=== PATIENT | female | born 1985 | race Caucasian/White ===

== ENCOUNTER 2016-10-05 12:54 | Emergency (ER) | payer MEDICAID, OTHER ==
[2016-10-05] MEDS ORDERED: HYDROmorphone* 1 MG/ML 1 ML SYR IV SLOW PU ONE (13:28)
[2016-10-05] MEDS ORDERED: Ondansetron INJ* 2 MG/ML VIAL IV ONE (13:30)
--- NOTE | 2016-10-05 14:01 | RAD ---
INDICATION: Bilateral upper quadrant abdominal pain, polycystic kidney disease and hypertension. COMPARISON: Comparison is made with a prior CT of the abdomen and pelvis from December 16, 2005. TECHNIQUE: A CT scan of the abdomen and pelvis was performed without intravenous or oral contrast. Contiguous axial sections were obtained from the lung bases through the symphysis pubis. Images were reconstructed in the coronal and sagittal planes. FINDINGS: There is mild dependent bilateral lower lobe subsegmental atelectasis. No pleural effusion is present. The liver and spleen are normal in size. There is a small hypodense lesion in the posterior segment of the right hepatic lobe which is not seen on the prior exam measuring 0.7 cm in size likely representing a cyst although too small to characterize on this noncontrast study. No calcified gallstones are seen. The gallbladder is nondistended. The pancreas appears to be within normal limits. The right adrenal gland appears to be within normal limits. The left adrenal gland is not well-defined. The kidneys are markedly enlarged with numerous cysts. A few of these cysts appear hyperdense consistent with hemorrhagic cysts within both kidneys. There are also bilateral renal calcifications most consistent with calculi. No ureteral or bladder calculi are seen. The aorta is normal in caliber without significant calcific plaque. There are a couple mildly prominent para-aortic and pericaval retroperitoneal lymph nodes in the upper abdomen measuring up to 1.0 cm in transverse dimension. No other enlarged intraperitoneal lymph nodes are seen. The stomach, small and large bowel appear nondistended. The appendix is not visualized. There is no evidence for diverticulitis or colitis. The uterus is anteverted and normal in size. No free intraperitoneal air or fluid is seen. There are surgical clips present bilaterally within the pelvis. No significant focal osseous abnormality is seen. IMPRESSION: 1. MARKEDLY ENLARGED KIDNEYS WITH NUMEROUS CYSTS WITH SEVERAL HEMORRHAGIC CYSTS AND RENAL CALCULI CONSISTENT WITH ADULT TYPE POLYCYSTIC KIDNEY DISEASE. 2. THERE ARE COUPLE MILDLY PROMINENT RETROPERITONEAL LYMPH NODES IN THE UPPER ABDOMEN.
[2016-10-05 14:32] LABS: Hematocrit 38 % (35-47); Hemoglobin 12.4 g/dl (12.0-16.0); Mean Corpuscular HGB Conc 33 g/dl (31-36); Mean Corpuscular Hemoglobin 30 pg (27-31); Mean Corpuscular Volume 93 fL (80-97); Mean Platelet Volume 8 um3 (7.4-10.4); Red Blood Count 4.12 10^6/ul (4.0-5.4); Red Cell Distribution Width 15 % (10.5-15)
[2016-10-05] MEDS ORDERED: Labetalol IV* 5 MG/ML 20 ML VIAL IV PUSH ONE (14:33)
[2016-10-05 14:50] LABS: Troponin I 0.01 ng/mL (<0.04)
[2016-10-05 14:59] LABS: Albumin 4.3 g/dL (3.2-5.2); BUN/Creatinine Ratio 6.5 (8-20); C Reactive Protein 1.47 mg/L (< 5.00); Calcium 9.1 mg/dL (8.6-10.3); EGFR African American 11.1 (>60); EGFR Non-African American 8.6 (>60); Globulin 3.8 g/dL (2-4); Magnesium 2.4 mg/dL (1.9-2.7); Potassium 4.7 mmol/L (3.5-5.0); Total Bilirubin 0.5 mg/dL (0.2-1.0); Total Protein 8.1 g/dL (6.4-8.9)
--- NOTE | 2016-10-05 15:12 | RAD ---
INDICATION: Upper abdominal pain. COMPARISON: Correlation is made with a prior renal ultrasound from December 16, 2005. Correlation is also made with the CT of the abdomen and pelvis from October 05, 2016. TECHNIQUE: Multiple real-time images of the abdomen were obtained. FINDINGS: The liver is normal in size and echogenicity without significant focal abnormality. The gallbladder appeared normal. No gallstones, gallbladder wall thickening or pericholecystic fluid was present. No intra or extrahepatic ductal distention is present. The common bile duct measured 0.4 cm in diameter. The pancreas is partially obscured by overlying bowel gas. The kidneys are markedly enlarged with numerous cysts consistent with the patient's history of adult type polycystic kidney disease. The right kidney measured 25.3 x 12.6 x 12.1 cm and the left kidney measured 20.7 x 12.0 x 12.7 cm. The spleen is normal in size without focal abnormality. IMPRESSION: 1. MARKEDLY ENLARGED KIDNEYS WITH NUMEROUS CYSTS CONSISTENT WITH POLYCYSTIC KIDNEY DISEASE. 2. NORMAL EXAM OF THE GALLBLADDER.
[2016-10-05 15:41] LABS: Urine Bacteria 1+ (Absent); Urine Bilirubin Negative (Negative); Urine Glucose Negative (Negative); Urine Nitrite Negative (Negative)
[2016-10-05] MEDS ORDERED: NS 0.9% 1000 ML* 1,000 ML BOLUS SCH (17:00)
[2016-10-05 17:45] VITALS: BP 148/97
--- NOTE | 2016-10-06 04:39 | ED ---
Shayy Sawant Thomas, scribed for Amy Martino MD on 10/05/16 at 1317 . Abdominal Pain/Female - HPI Summary HPI Summary: The pt is a 31 y/o F accompanied by fileslie presenting to the ED c/o diffuse abd pain that began this AM around 8: 00. The pain is greater in the R side than the L. The pt rates the pain 10/10. The pain is intermittent and is described as stabbing. Pt additionally c/o vomiting (green in color, 5x this morning), chronic back pain (attributed to kidneys). Pt denies diarrhea, dysuria, and hematuria. PMHx: polycystic kidney disease, Stage 5 kidney failure (onset 1 year , used to see Dr. Olguin), HTN. PSHx: tubal ligation. SHx: smoking (1/2 PPD), no alcohol, no illict drugs. FHx: polycystic kidney disease. Her vomiting began this morning before her abd pain did. She ate pizza last night and ate crackers this AM, but was unable to keep them down. Her last BM was this AM and was normal. She takes metoprolol 12.5 mg daily, amlodipine 10mg daily, and Percocet 7.5/325 daily. She took Percocet today at approximately 8AM but not take metoprolol or amlodipine. She is not on dialysis and she does not have an AV Fistula. Her mother is on dialysis, as well as other family members. No family members have received a kidney transplant. She sees Dr. Raquel Suarez, training facilitator in [facility], for her polycystic kidney disease. She states that her chronic kidney pain normally shoots behind her back and radiates into her lower abdomen. However, her current abd pain is located in her diffuse abdomen and is R>L. LNMP 09/14/16. G=2, P=2, A=0. - History of Current Complaint Chief Complaint: EDAbdPain Stated Complaint: VOMITING,ABD PAIN Time Seen by Provider: 10/05/16 13:10 Hx Obtained From: Patient, Family/Manager Of Business Operations - fiance is with pt ?: No Onset/Duration: Sudden Onset, Lasting Hours - began today at 8AM, Still Present Timing: Constant Severity Initially: Severe Severity Currently: Severe Pain Intensity: 10 Pain Scale Used: 0-10 Numeric Location: Diffuse, Other - R>L Radiates: No Character: Other: - stabbing Aggravating Factor(s): Nothing Alleviating Factor(s): Nothing Associated Signs and Symptoms: Positive: Vomiting - 5x this AM, green in color. Negative: Diarrhea, Other: - NEG: dysuria, hematuria Allergies/Adverse Reactions: Allergies Allergy/AdvReac Type Severity Reaction Status Date / Time Metoclopramide [From Reglan] Allergy Hives Verified 10/05/16 12:59 Morphine Allergy Hives Verified 10/05/16 13:00 PMH/Surg Hx/FS Hx/Imm Hx Previously Healthy: No - Polycystic kidney disease Cardiovascular History: Reports: Hx Hypertension History: Reports: Hx Chronic Renal Failure - stage 5, Other Problems/ Disorders - Hx polycystic kidney disease - Surgical History Surgery Procedure, Year, and Place: tubal ligation Infectious Disease History: Denies: Traveled Outside the [place] in Last 30 Days - Family History Known Family History: Positive: Other - POS: polycystic kidney disease - Social History Lives: With Family - with two children Alcohol Use: None Substance Use Type: Reports: None Smoking Status (MU): Smoker, Current Status Unknown Review of Systems Constitutional: Negative Negative: Fever Eyes: Negative ENT: Negative Cardiovascular: Negative Respiratory: Negative Positive: Abdominal Pain - began this AM, stabbing, intermittent, diffuse but R> L , Vomiting - green, onset this AM before abd pain, 5x. Negative: Diarrhea Genitourinary: Negative Musculoskeletal: Negative Skin: Negative Neurological: Negative Psychological: Normal All Other Systems Reviewed And Are Negative: Yes Physical Exam Triage Information Reviewed: Yes Vital Signs On Initial Exam: Initial Vitals Temp Pulse Resp BP Pulse Ox 97.3 F 87 20 180/107 100 10/05/16 12:56 10/05/16 12:56 10/05/16 12:56 10/05/16 12:56 10/05/16 12:56 Vital Signs Reviewed: Yes Appearance: Positive: Well-Appearing, Well-Nourished, Pain Distress Skin: Positive: Warm, Skin Color Reflects Adequate Perfusion Head/Face: Positive: Normal Head/Face Inspection Eyes: Positive: Conjunctiva Clear ENT: Positive: Normal ENT inspection Neck: Positive: Supple Respiratory/Lung Sounds: Positive: Clear to Auscultation, Breath Sounds Present , Other - No respiratory distress Cardiovascular: Positive: RRR, Pulses are Symmetrical in both Upper and Lower Extremities, Other - Brisk cap refill. Negative: Rub Abdomen Description: Positive: Soft, CVA Tenderness (R), CVA Tenderness (L), Other: - Tender to RUQ and LUQ. No rebound. Enlarged kidneys revealed in palpation.. Negative: Nontender, Guarding, McBurney's Point Tenderness, Peritoneal Signs, Pulsatile Mass, Splenomegaly Bowel Sounds: Positive: Present Musculoskeletal: Positive: Strength/ROM Intact. Negative: Edema Left, Edema Right Neurological: Positive: Sensory/Motor Intact, Alert, Oriented to Person Place, Time, Speech Normal Psychiatric: Positive: Other - tearful with pain Diagnostics - Vital Signs Vital Signs Temp Pulse Resp BP Pulse Ox 10/05/16 12:56 97.3 F 87 20 180/107 100 - Laboratory Result Diagrams: 10/05/16 14:19 10/05/16 14:19 Lab Statement: Any lab studies that have been ordered have been reviewed, and results considered in the medical decision making process. - CT CT Abd/Pel CT Interpretation: Positive (See Comments) - 1. MARKEDLY ENLARGED KIDNEYS WITH NUMEROUS CYSTS WITH SEVERAL HEMORRHAGIC CYSTS AND RENAL CALCULI CONSISTENT WITH ADULT TYPE POLYCYSTIC KIDNEY DISEASE. 2. THERE ARE COUPLE MILDLY PROMINENT RETROPERITONEAL LYMPH NODES IN THE UPPER ABDOMEN. CT Interpretation Completed By: Radiologist - EKG 15:17 Cardiac Rate: NL - 66 BPM EKG Interpretation: Sinus rhythm. Normal AV, IV conduction time, and QTc. RSR' in V1, V2. EKG Comparison: Other - No prior EKGs - Additional Comments Diagnostic Additional Comments: US Abdomen. Interpreted by radiologist. Impression: 1. MARKEDLY ENLARGED KIDNEYS WITH NUMEROUS CYSTS CONSISTENT WITH POLYCYSTIC KIDNEY DISEASE. 2. NORMAL EXAM OF THE GALLBLADDER. Re-Evaluation - Re-Evaluation First Eval Re-Evaluation Time: 14:24 Change: Unchanged Comment: On re-evaluation, patient is informed of CT Abd/Pel results. She is still in pain. Her labs are not yet back at this point. She was informed to remain NPO. BP 178/199. will give labetalol Second Eval Re-Evaluation Time: 16:43 Change: Unchanged Comment: Blood pressure is 133/95. Her pulse is 71. She is thirsty. She is not nauseous and not in any pain. Abdominal Pain Fem Course/Dx - Course Course Of Treatment: At 16:39, I called the patient's training facilitator Dr. Maryann Suarez. I was directed to the training facilitator community relations rep and I gave [facility]'s phone number. I was told that I will recieve a return phone call from Dr. Killian Harrell in the near future. His number is [phone]. I recieved a phone call from him at 16:50 and we discussed patient care. Dr. Harrell agrees with discharge and close office follow up. . ASSESSMENT AND PLAN: The pt is a 31 y/o F accompanied by chelsie presenting to the ED c/o diffuse abd pain that began this AM around 8: 00. The pain is greater in the R side than the L. The pt rates the pain 10/10. The pain is intermittent and is described as stabbing. Pt additionally c/o vomiting (green in color, 5x this morning), chronic back pain (attributed to kidneys). Pt denies diarrhea, dysuria, and hematuria. PMHx: polycystic kidney disease, Stage 5 kidney failure (onset 1 year , used to see Dr. Olguin), HTN. PSHx: tubal ligation. SHx: smoking (1/2 PPD), no alcohol, no illict drugs. FHx: polycystic kidney disease. Her vomiting began this morning before her abd pain did. She ate pizza last night and ate crackers this AM, but was unable to keep them down. Her last BM was this AM and was normal. She takes metoprolol 12.5 mg daily, amlodipine 10mg daily, and Percocet 7.5/325 daily. She took Percocet today at approximately 8AM but not take metoprolol or amlodipine. She is not on dialysis and she does not have an AV Fistula. Her mother is on dialysis, as well as other family members. No family members have received a kidney transplant. She sees Dr. Raquel Suarez, training facilitator in [facility], for her polycystic kidney disease. She states that her chronic kidney pain normally shoots behind her back and radiates into her lower abdomen. However, her current abd pain is located in her diffuse abdomen and is R>L. [facility] 09/14/16. G=2, P=2, A=0. CT Abd/Pel reveals 1. MARKEDLY ENLARGED KIDNEYS WITH NUMEROUS CYSTS WITH SEVERAL HEMORRHAGIC CYSTS. AND RENAL CALCULI CONSISTENT WITH ADULT TYPE POLYCYSTIC KIDNEY DISEASE. 2. THERE ARE COUPLE MILDLY PROMINENT RETROPERITONEAL LYMPH NODES IN THE UPPER ABDOMEN. US Abdo reveals 1. MARKEDLY ENLARGED KIDNEYS WITH NUMEROUS CYSTS CONSISTENT WITH POLYCYSTIC KIDNEY. DISEASE. 2. NORMAL EXAM OF THE GALLBLADDER. Bloodwork shows WBC 12.0, Neut % 84.6, Lymph % 11.8, Absolute Neuts 10.1, CO2 18, BUN 37, Creatinine 5.73, BUN/Creatinine 6.5, Glucose 102,. UA shows specific gravity 1.008, protein 2+, blood 1+, leukocyte esterase 1+, RBC 1+, squamous cells present, bacteria 1+. Will await urine culture before treating for UTI. Pt is without UTI sxs and there could be contamination or colonization of urine, not true infection. An EKG revealed sinus rhythm at 66 BPM, normal AV, nml IV conduction time, nml QTc, RSR in V1 and V2, with no prior EKGs. Patients medication reviewed this visit. Blood pressure noted. Allergies noted. Re-eval at 14:23 showed unchanged status. At 16:39, I called the patient's training facilitator Dr. Maryann Suarez. I was directed to the training facilitator community relations rep and I gave [facility]'s phone number. I was told that I will recieve a return phone call from Dr. Killian Harrell in the near future. Re-eval at 16:44 showed blood pressure is 133/95. Her pulse is 71. She is thirsty. She is not nauseous and not in any more pain. She was informed that quitting smoking and controlling her HTN would be beneficial to her kidney function. Dr. Shun Harrell called back at 16:50 and we discussed patient care. In the ED course the patient was NPO and given Dilaudid , labetalol, and Zofran. Patient is diagnosed with polycystic kidney disease with hemorrhagic ruptured cysts. The patient is also diagnosed with tobacco abuse disorder and given educational materials on how to stop smoking. The patient is also diagnosed with elevated blood pressure under poor control. Patient will be discharged with follow up from her PCP and training facilitator. Patient is agreeable with this plan. - Diagnoses Differential Diagnosis: Positive: Gall Bladder Disease, Renal Colic, Urinary Tract Infection, Other - PCKD ruptured or hemorrhagic cysts Provider Diagnoses: Tobacco abuse disorder, Polycystic kidney disease, Hemorrhagic ruptured kidney cysts Discharge - Discharge Plan Condition: Stable Disposition: HOME Patient Education Materials: How to Stop Smoking (ED), Autosomal Dominant Polycystic Kidney Disease (ED), DASH Eating Plan (ED), Hypertension (ED) Referrals: Raquel Suarez [Medical Doctor] - 2 Days (call on Friday10/07/16 and arrange to be seen within 1 week. ) The documentation as recorded by the Shayy blount Thomas accurately reflects the service I personally performed and the decisions made by , Amy Martino MD.
== END 2016-10-05 17:46 | disposition home or self-care (01) ==
LOC: ED 12:54
DX: Q61.3 Polycystic kidney, unspecified (principal); N28.1 Cyst of kidney, acquired; R10.9 Unspecified abdominal pain; Z72.0 Tobacco use
CPT/HCPCS: 36415; 74176; 76700; 80053; 81003; 81015; 82150; 83605; 83690; 83735; 84484; 84702; 85025; 85610; 85730; 86140; 87086; 93005; 96374; 96375; 99283; J1170; J2405

== ENCOUNTER 2017-07-27 05:55 | Emergency (ER) | payer OTHER ==
[2017-07-27 06:34] LABS: Urine Appearance Clear; Urine Blood 2+ (Negative); Urine Color Straw; Urine Ketones Negative (Negative); Urine Protein 2+(100 mg/dL) (Negative); Urine Specific Gravity 1.005 (1.010-1.030); Urine Urobilinogen Negative (Negative)
[2017-07-27 07:30] LABS: ABS Basophils 0.1 10^3/ul (0-0.2); ABS Eosinophils 0.2 10^3/ul (0-0.6); ABS Lymphocytes 1.7 10^3/ul (1.0-4.8); ABS Monocytes 0.6 10^3/ul (0-0.8); ABS Neutrophils 7.4 10^3/ul (1.5-7.7); ABS Nucleated RBC 0 10^3/ul; Eosinophil % 1.8 % (0-6); Hematocrit 30 % (35-47); Hemoglobin 10.2 g/dl (12.0-16.0); Lymphocyte % 17.5 % (25-47); Mean Corpuscular HGB Conc 34 g/dl (31-36); Mean Corpuscular Hemoglobin 31 pg (27-31); Mean Corpuscular Volume 91 fL (80-97); Mean Platelet Volume 7.7 um3 (7.4-10.4); Nucleated Red Blood Cells % 0; Platelet Count 159 10^3/ul (150-450); Red Blood Count 3.32 10^6/ul (4.0-5.4); Red Cell Distribution Width 15 % (10.5-15)
[2017-07-27] MEDS ORDERED: HYDROmorphone INJ* 1 MG/ML CARPUJECT SYRINGE IV ONE ×2 (07:47→10:42)
[2017-07-27] MEDS ORDERED: NS 0.9% 1000 ML* 2,000 ML IV ONE (07:47)
[2017-07-27] MEDS ORDERED: Ondansetron ODT TAB* 4 MG PO ONE (07:47)
[2017-07-27 07:48] LABS: EGFR Non-African American 5.2 (>60)
[2017-07-27] MEDS ORDERED: HYDROmorphone INJ* 2 MG/ML CARPUJECT SYRINGE ONE ×2 (07:59→10:47)
[2017-07-27] MEDS ORDERED: NS 0.9% 1000 ML* 1,000 ML IV SCH (08:00)
[2017-07-27] MEDS ORDERED: HYDROmorphone INJ* 2 MG/ML CARPUJECT SYRINGE IV SLOW PU ONE (08:01)
--- NOTE | 2017-07-27 08:40 | RAD ---
Indication: Right upper quadrant and right flank pain. CT of the abdomen and pelvis was performed without oral or IV contrast administration. Comparison is made with previous exam dated 10/03/2016 and 12/16/2005. Lung bases demonstrate no pleural fluid, nodules or masses. Heart is of normal size without evidence of pericardial effusion. The liver demonstrates low density lesion in the dome measuring approximately 4 mm consistent with a tiny cyst. The periphery of the right lobe is an additional subcapsular low-density lesion consistent with a cyst. No focal lesions or intrahepatic duct dilatation are noted. The spleen is normal in size. The pancreas demonstrates no mass or pancreatic duct dilatation. The common duct is not dilated. Gallbladder demonstrates no definite calcified gallstones. No definite adrenal nodules are noted although there is extrinsic compression of the adrenal gland. The kidneys demonstrates multiple cysts of varying sizes replacing both kidney parenchyma. Several cysts appear hyperdense and this is consistent with polycystic kidney disease. No retroperitoneal lymphadenopathy is noted. Multiple calculi are noted in the lower pole of the right kidney. These were present previously. Aorta and inferior vena cava are unremarkable. No dilated loops of bowel are noted. The uterus is grossly unremarkable. Surgical clips are noted. Urinary bladder is unremarkable. No hernias are noted. No free fluid is identified. No dilated loops of bowel are noted. The visualized bony structures are grossly unremarkable. 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 No cholelithiasis or biliary ductal dilatation is noted. The collecting system of the kidneys is difficult to evaluate due to multiple cysts. The gallbladder demonstrates no calcified gallstones. Multiple cysts are noted in the liver.
--- NOTE | 2017-07-27 09:32 | RAD ---
Indication: Right upper quadrant pain. Real-time sonography of the right upper quadrant was performed. The liver is normal in size. No focal lesions or intrahepatic duct dilatation is noted. The gallbladder demonstrates no gallstones, pericholecystic fluid or wall thickening. The common duct measures 4 mm. The right kidney measures 28.6 x 15.9 x 11.2 cm. Innumerable cysts are noted in the right kidney. The pancreas is not visualized. IMPRESSION: NO CHOLELITHIASIS OR BILIARY DUCT DILATATION IS NOTED.
--- NOTE | 2017-07-27 11:41 | ED ---
Rad Sawant Stephanie, scribed for Cruz Cabezas MD on 07/27/17 at 0828 . GI/ HPI - HPI Summary HPI Summary: The pt is a 31 y/o F presenting to the ED with c/o N/V since 03:00 today. Symptoms include sharp R sided abd pain. She denies dysuria, hematuria, CP, SOB , fever and chills. Her abd pain is intermittent and is rated as a 7 in severity. The pt reports in September 2016 she was hospitalized with similar symptoms. - History of Current Complaint Chief Complaint: EDAbdPain Time Seen by Provider: 07/27/17 07:18 Stated Complaint: ABD PAIN Hx Obtained From: Patient Onset/Duration: Started Hours Ago - 5, Still Present Timing: Intermittent Current Severity: Moderate Pain Intensity: 7 Location of Pain: RUQ, RLQ Pain Characteristics: Sharp Associated Signs and Symptoms: Positive: Negative - SOB, Nausea, Vomiting, Abdominal Pain. Negative: Fever, Hematuria, Dysuria, Chills, Chest Pain Aggravating Factor(s): Nothing Alleviating Factor(s): Nothing - Allergy/Home Medications Allergies/Adverse Reactions: Allergies Allergy/AdvReac Type Severity Reaction Status Date / Time metoclopramide [From Reglan] Allergy Hives Verified 07/27/17 06:02 morphine Allergy Hives Verified 07/27/17 06:02 Home Medications: Home Medications Calcitriol CAP* [Rocaltrol CAP*] 0.25 mcg PO SEE INSTRUCTIONS 07/27/17 [ History Confirmed 07/27/17] Metoprolol Fung/Hydrochlorothiaz [Metoprolol Succinate ER/H 25-12.5 mg] 0.5 tab PO DAILY 07/27/17 [History Confirmed 07/27/17] Oxycodone HCl/Acetaminophen [Oxycodone/Acetaminophen] 7.5 tab PO Q6HR PRN [History Confirmed 07/27/17] Ranitidine TAB (NF) [Zantac TAB (NF)] 150 mg PO DAILY 07/27/17 [History Confirmed 07/27/17] amLODIPine TAB* [Norvasc 5 mg TAB*] 10 mg PO DAILY 07/27/17 [History Confirmed 07/27/17] PMH/Surg Hx/FS Hx/Imm Hx Cardiovascular History: Reports: Hx Hypertension History: Reports: Hx Chronic Renal Failure - stage 5, Other Problems/ Disorders - Hx polycystic kidney disease Sensory History: Denies: Hx Legally Blind EENT History: Denies: Hx Deafness - Surgical History Surgery Procedure, Year, and Place: tubal ligation - Immunization History Date of Tetanus Vaccine: utd Date of Influenza Vaccine: none Infectious Disease History: No Infectious Disease History: Denies: Traveled Outside the [place] in Last 30 Days - Family History Known Family History: Positive: Other - POS: polycystic kidney disease - Social History Occupation: Unemployed Lives: Alone Alcohol Use: Rare Hx Substance Use: No Substance Use Type: Reports: None Hx Tobacco Use: Yes Smoking Status (MU): Light Every Day Tobacco Smoker Review of Systems Negative: Fever, Chills Negative: Chest Pain Negative: Shortness Of Breath Positive: Abdominal Pain, Vomiting, Nausea Negative: dysuria, hematuria All Other Systems Reviewed And Are Negative: Yes Physical Exam - Summary Physical Exam Summary: General: well-appearing, moderate pain distress Skin: warm, color reflects adequate perfusion, dry Head: normal Eyes: EOMI, IRA ENT: normal Neck: supple, nontender Respiratory: CTA, breath sounds present Cardiovascular: RRR Abdomen: soft, tender in epigastrium and RUQ, no tenderness in lower abd Bowel: positive bowel sounds Musculoskeletal: normal, strength/ROM intact Neurological: sensory/motor intact, A&O x3 Psychological: affect/mood appropriate Triage Information Reviewed: Yes Vital Signs On Initial Exam: Initial Vitals Temp Pulse Resp BP Pulse Ox 98.5 F 78 16 162/115 100 07/27/17 05:57 07/27/17 05:57 07/27/17 05:57 07/27/17 05:57 07/27/17 05:57 Vital Signs Reviewed: Yes Diagnostics - Vital Signs Vital Signs Temp Pulse Resp BP Pulse Ox 07/27/17 08:01 16 07/27/17 05:57 98.5 F 78 16 162/115 100 - Laboratory Lab Results: Lab Results 07/27/17 07/27/17 07/27/17 Range/Units 06:17 07:23 07:23 WBC 10.0 (3.5-10.8) 10^3/ul RBC 3.32 L (4.0-5.4) 10^6/ul Hgb 10.2 L (12.0-16.0) g/dl Hct 30 L (35-47) % MCV 91 (80-97) fL MCH 31 (27-31) pg MCHC 34 (31-36) g/dl RDW 15 (10.5-15) % Plt Count 159 (150-450) 10^3/ul MPV 7.7 (7.4-10.4) um3 Neut % (Auto) 74.3 (38-83) % Lymph % (Auto) 17.5 L (25-47) % Craven % (Auto) 5.8 (0-7) % Eos % (Auto) 1.8 (0-6) % Baso % (Auto) 0.6 (0-2) % Absolute Neuts (auto) 7.4 (1.5-7.7) 10^3/ul Absolute Lymphs (auto) 1.7 (1.0-4.8) 10^3/ul Absolute Monos (auto) 0.6 (0-0.8) 10^3/ul Absolute Eos (auto) 0.2 (0-0.6) 10^3/ul Absolute Basos (auto) 0.1 (0-0.2) 10^3/ul Absolute Nucleated RBC 0 10^3/ul Nucleated RBC % 0 Sodium 138 L (139-145) mmol/L Potassium 3.8 (3.5-5.0) mmol/L Chloride 112 H (101-111) mmol/L Carbon Dioxide 16 L (22-32) mmol/L Anion Gap 10 (2-11) mmol/L BUN 47 H (6-24) mg/dL Creatinine 8.95 H (0.51-0.95) mg/dL Est GFR ( Amer) 6.6 (>60) Est GFR (Non-Af Amer) 5.2 (>60) BUN/Creatinine Ratio 5.3 L (8-20) Glucose 88 (70-100) mg/dL Calcium 7.9 L (8.6-10.3) mg/dL Total Bilirubin 0.40 (0.2-1.0) mg/dL AST 10 L (13-39) U/L ALT 4 L (7-52) U/L Alkaline Phosphatase 68 (34-104) U/L C-React Prot High Sens 3.21 mg/L Total Protein 7.1 (6.4-8.9) g/dL Albumin 4.0 (3.2-5.2) g/dL Globulin 3.1 (2-4) g/dL Albumin/Globulin Ratio 1.3 (1-3) Lipase 24 (11.0-82.0) U/L Beta HCG, Quant 1.51 mIU/mL Urine Color Straw Urine Appearance Clear Urine pH 6.0 (5-9) Ur Specific Palms 1.005 L (1.010-1.030) Urine Protein 2+(100 mg/dl) A (Negative) Urine Ketones Negative (Negative) Urine Blood 2+ A (Negative) Urine Nitrate Negative (Negative) Urine Bilirubin Negative (Negative) Urine Urobilinogen Negative (Negative) Ur Leukocyte Esterase 2+ A (Negative) Urine WBC (Auto) 2+(11-20/hpf) A (Absent) Urine RBC (Auto) 2+(6-10/hpf) A (Absent) Ur Squamous Epith Cells Present A (Absent) Urine Bacteria Absent (Absent) Urine Glucose 1+(50 mg/dl) A (Negative) Result Diagrams: 07/27/17 07:23 07/27/17 07:23 Lab Statement: Any lab studies that have been ordered have been reviewed, and results considered in the medical decision making process. 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 No cholelithiasis or biliary ductal dilatation is noted. The collecting system of the kidneys is difficult to evaluate due to multiple cysts. The gallbladder demonstrates no calcified gallstones. Multiple cysts are noted in the liver. ED physician has reviewed this report. - Additional Comments Diagnostic Additional Comments: US Gallbladder reveals: NO CHOLELITHIASIS OR BILIARY DUCT DILATATION IS NOTED. ED physician has reviewed this report. GIGU Course/Dx - Course Course Of Treatment: PATIENT HAS BEEN FOLLOWED AT [facility], DR RAQUEL SUAREZ. DISCUSSED WITH DR CHURCHILL, [facility]. 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 IT IS HIS UNDERSTANDING THE PATIENT WAS PLANNING ON GOING TO [place] FOR THE PERITONEAL DIALYSIS. RESULTS DISCUSSED WITH THE PATIENT AND FAMILY. THE PATIENT REPORTS SHE WILL F/U WITH [facility] TOMORROW. RETURN TO ED IF WORSE. - Diagnoses Provider Diagnoses: Right flank pain, Polycystic kidney disease, Chronic renal insufficiency - Physician Notifications Discussed Care Of Patient With: Cruz Deng director outcomes. Time Discussed With Above Provider: 11:15 Discharge - Sign-Out/Discharge Documenting (check all that apply): Discharge/Admit/Transfer - Discharge Plan Condition: Stable Disposition: HOME Prescriptions: Oxycodone HCl/Acetaminophen [Percocet 7.5-325 mg Tablet] 1 each PO Q6HR PRN #20 tablet MDD 4 PRN Reason: Pain Patient Education Materials: Chronic Kidney Disease (ED), Autosomal Dominant Polycystic Kidney Disease (ED), Flank Pain (ED) Referrals: Raquel Suarez [Medical Doctor] - Additional Instructions: FOLLOW UP WITH [facility], DR RAQUEL SUAREZ, TOMORROW, 07/28/17. RETURN TO THE EMERGENCY DEPARTMENT FOR ANY WORSENING OF YOUR CONDITION OR QUESTIONS OR CONCERNS. - Billing Disposition and Condition Condition: STABLE Disposition: HOME The documentation as recorded by the Rad blount Stephanie accurately reflects the service I personally performed and the decisions made by me, Cruz Cabezas MD.
[2017-07-27 12:32] VITALS: BP 178/118
== END 2017-07-27 12:29 | disposition home or self-care (01) ==
LOC: ED 05:55
DX: Q61.3 Polycystic kidney, unspecified (principal); N18.9 Chronic kidney disease, unspecified; K76.89 Other specified diseases of liver; F17.200 Nicotine dependence, unspecified, uncomplicated; Z88.8 Allergy status to other drugs, medicaments and biological substances
CPT/HCPCS: 36415; 74176; 76705; 80053; 81003; 81015; 83690; 84702; 85025; 86141; 87086; 96361; 96374; 96376; 99283; A9270-GY; J1170

== ENCOUNTER 2017-08-26 20:13 | Emergency (ER) | payer OTHER ==
[2017-08-26] MEDS ORDERED: HYDROmorphone INJ* 2 MG/ML CARPUJECT SYRINGE IV SLOW PU ONE (21:50)
[2017-08-26] MEDS ORDERED: NS 0.9% 1000 ML* 1,000 ML IV ONE (21:51)
[2017-08-26] MEDS ORDERED: Metoclopramide IV* 5 MG/ML 2 ML VIAL IV SLOW PU ONE (21:51)
[2017-08-26] MEDS ORDERED: Ondansetron INJ* 2 MG/ML VIAL IV ONE (22:29)
[2017-08-26 22:36] LABS: ABS Basophils 0.1 10^3/ul (0-0.2); ABS Eosinophils 0.3 10^3/ul (0-0.6); ABS Lymphocytes 2.1 10^3/ul (1.0-4.8); ABS Monocytes 0.5 10^3/ul (0-0.8); ABS Neutrophils 6.3 10^3/ul (1.5-7.7); ABS Nucleated RBC 0 10^3/ul; Eosinophil % 3.1 % (0-6); Hematocrit 30 % (35-47); Hemoglobin 10.1 g/dl (12.0-16.0); Lymphocyte % 22.4 % (25-47); Mean Corpuscular HGB Conc 33 g/dl (31-36); Mean Corpuscular Hemoglobin 31 pg (27-31); Mean Corpuscular Volume 92 fL (80-97); Mean Platelet Volume 7.5 um3 (7.4-10.4); Nucleated Red Blood Cells % 0.1; Platelet Count 176 10^3/ul (150-450); Red Blood Count 3.28 10^6/ul (4.00-5.40); Red Cell Distribution Width 15 % (10.5-15); White Blood Count 9.2 10^3/ul (3.5-10.8)
[2017-08-26 22:40] LABS: Urine Appearance Clear; Urine Blood 1+ (Negative); Urine Color Straw; Urine Ketones Negative (Negative); Urine Protein 1+(30 mg/dL) (Negative); Urine Specific Gravity 1.004 (1.010-1.030); Urine Urobilinogen Negative (Negative)
[2017-08-26] MEDS ORDERED: Bisacodyl SUPP* 10 MG SUPP PR ONE (23:38)
[2017-08-26] MEDS ORDERED: Magnesium CITRATE* 300 ML BTL PO ONE (23:39)
[2017-08-26 23:59] VITALS: BP 188/78
--- NOTE | 2017-08-27 00:19 | ED ---
Candelaria Sawant Gabriel, scribed for Arlene Anderson MD on 08/26/17 at 2203 . Back Pain - HPI Summary HPI Summary: This patient is a 31 year old F presenting to [facility] accompanied by her boyfriend with a chief complaint of left sided flank that was worse this morning. Pt has hx of polycystic kidneys and has chronic pain that she usually controls at home but today it was worse. 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 Raquel Suarez and she is prescribed Percocet for the pain, her last dose was at noon today. The patient rates the pain 10/10 in severity. Symptoms alleviated by nothing. Patient reports nausea. Patient denies vomiting. - History of Current Complaint Chief Complaint: EDFlankPain Stated Complaint: LT SIDE PAIN Time Seen by Provider: 08/26/17 21:24 Hx Obtained From: Patient Onset/Duration: Still Present, Worse Since - today Timing: Constant Severity Initially: Severe Severity Currently: Severe Pain Intensity: 10 Pain Scale Used: 0-10 Numeric Alleviating Symptom(s): Nothing Associated Signs And Symptoms: Positive: Other - nausea - Allergies/Home Medications Allergies/Adverse Reactions: Allergies Allergy/AdvReac Type Severity Reaction Status Date / Time metoclopramide [From Reglan] Allergy Hives Verified 08/26/17 20:24 morphine Allergy Hives Verified 08/26/17 20:24 Home Medications: Home Medications Metoprolol Succinate XL TAB* [Toprol XL TAB*] 12.5 mg PO QAM 08/26/17 [History Confirmed 08/26/17] Oxycodone HCl/Acetaminophen [Percocet] 1 tab PO Q6H PRN 08/26/17 [History Confirmed 08/26/17] PMH/Surg Hx/FS Hx/Imm Hx Cardiovascular History: Reports: Hx Hypertension Respiratory History: Denies: Hx Chronic Obstructive Pulmonary Disease (COPD), Hx Cystic Fibrosis GI History: Denies: Hx Gastroesophageal Reflux Disease History: Reports: Hx Chronic Renal Failure - stage 5, Other Problems/ Disorders - Hx polycystic kidney disease Sensory History: Denies: Hx Legally Blind, Hx Deafness Opthamlomology History: Denies: Hx Legally Blind - Surgical History Surgery Procedure, Year, and Place: tubal ligation - Immunization History Date of Tetanus Vaccine: utd Date of Influenza Vaccine: none Infectious Disease History: No Infectious Disease History: Denies: Traveled Outside the [place] in Last 30 Days - Family History Known Family History: Positive: Other - POS: polycystic kidney disease Negative: Seizure Disorder - Social History Lives: With Family Alcohol Use: Rare Hx Substance Use: No Substance Use Type: Reports: None Hx Tobacco Use: Yes Smoking Status (MU): Light Every Day Tobacco Smoker Review of Systems Positive: Nausea. Negative: Vomiting Positive: flank pain All Other Systems Reviewed And Are Negative: Yes Physical Exam - Summary Physical Exam Summary: VITAL SIGNS: Reviewed. GENERAL: Patient is a well-developed and nourished female who is lying comfortable in the stretcher. Patient is not in any acute respiratory distress. HEAD AND FACE: No signs of trauma. No ecchymosis, hematomas or skull depressions. No sinus tenderness. EYES: PERRLA, EOMI x 2, No injected conjunctiva, no nystagmus. EARS: Hearing grossly intact. Ear canals and tympanic membranes are within normal limits. MOUTH: Oropharynx within normal limits. NECK: Supple, trachea is midline, no adenopathy, no JVD, no carotid bruit, no c- spine tenderness, neck with full ROM. CHEST: Symmetric, no tenderness at palpation LUNGS: Clear to auscultation bilaterally. No wheezing or crackles. CVS: Regular rate and rhythm, S1 and S2 present, no murmurs or gallops appreciated. ABDOMEN: Soft, LUQ is TTP. No signs of distention. No rebound no guarding, and no masses palpated. Bowel sounds are normal. EXTREMITIES: FROM in all major joints, no edema, no cyanosis or clubbing. NEURO: Alert and oriented x 3. No acute neurological deficits. Speech is normal and follows commands. SKIN: Dry and warm Triage Information Reviewed: Yes Vital Signs On Initial Exam: Initial Vitals Temp Pulse Resp BP Pulse Ox 98.4 F 64 18 200/112 100 08/26/17 20:18 08/26/17 20:18 08/26/17 20:18 08/26/17 20:18 08/26/17 20:18 Vital Signs Reviewed: Yes Diagnostics - Vital Signs Vital Signs Temp Pulse Resp BP Pulse Ox 08/26/17 20:18 98.4 F 64 18 200/112 100 - Laboratory Result Diagrams: 08/26/17 22:24 08/26/17 22:24 Lab Statement: Any lab studies that have been ordered have been reviewed, and results considered in the medical decision making process. - CT CT ABD/Pelvis CT Interpretation Completed By: Radiologist - polycystic kidneys and constipation ED physician has reviewed this radiology report. Back Pain Course/Dx - Course Assessment/Plan: This patient is a 31 year old F presenting to [facility] accompanied by her boyfriend with a chief complaint of left sided flank that was worse this morning. Pt has hx of polycystic kidneys and has chronic pain that she usually controls at home but today it was worse. 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 Raquel Suarez and she is prescribed Percocet for the pain, her last dose was at noon today. The patient rates the pain 10/10 in severity. Symptoms alleviated by nothing. Patient reports nausea. Patient denies vomiting. CT ABD/pelvis reveals, per radiologist, polycystic kidneys and constipation. Dx Constipation. Test results with no significant abnormalities. UA and blood work obtained. In the ED course the patient was given zofran, IV fluids, dulcolax, and dilaudid. Patient will be discharged and follow up from PCP. The patient is agreeable with this plan. - Diagnoses Provider Diagnoses: Constipation Discharge - Sign-Out/Discharge Documenting (check all that apply): Discharge/Admit/Transfer - Discharge Plan Condition: Stable Disposition: HOME Patient Education Materials: Constipation (ED), High Fiber Diet (ED) Referrals: Annita Quintanilla DO [Primary Care Provider] - 3 Days Additional Instructions: RETURN TO THE ER FOR ANY NEW OR WORSENING SYMPTOMS The documentation as recorded by the Candelaria blount Gabriel accurately reflects the service I personally performed and the decisions made by , Arlene Anderson MD.
--- NOTE | 2017-08-27 07:44 | RAD ---
INDICATION: Left flank pain. Polycystic kidney disease. COMPARISON: CT July 27, 2017 TECHNIQUE: Noncontrast axial source images were acquired from the level hemidiaphragms to the symphysis pubis as part of CT imaging for renal stone. Lung bases: The lung bases are clear. Liver: The liver is normal in size. Noncontrast imaging shows no evidence of a new hepatic mass or ductal dilatation. There are small hepatic cysts. Gallbladder: There are no calcified gallstones. There is no evidence of wall thickening or pericholecystic fluid.. Spleen: The spleen is normal in size. The noncontrast CT appearance is normal. Pancreas: Noncontrast imaging shows no pancreatic mass or ductal dilitation. Adrenal glands: No masses are identified. Kidneys/Bladder: The kidneys are markedly enlarged with too numerous to count cysts compatible with the history of autosomal dominant polycystic kidney disease. The appearance is unchanged. Multiple punctate calculi are present in each kidney, unchanged. No calcifications along the course of either ureter or hydronephrosis is appreciated. Adenopathy: There is no evidence of intraperitoneal or retroperitoneal adenopathy. Evaluation is limited without oral contrast. Fluid collections: There are no free or localized fluid collections. Vessels: The aorta and iliac vessels are normal in caliber. There are no significant atherosclerotic changes. The IVC appears normal Pelvic organs: The uterus and adnexa appear normal. There is tubal ligation. GI tract: Evaluation of the bowel is limited without oral contrast. The stomach, small bowel, and lower GI tract appear grossly normal. There are no obstructive findings. The appendix is visualized and appears normal. Soft tissues: No soft tissue abnormalities of the extraperitoneal abdomen or pelvis are identified. Osseous structures: There are no acute osseous findings. IMPRESSION: CT FINDINGS CONSISTENT WITH ADULT ONSET POLYCYSTIC KIDNEY DISEASE. PUNCTATE CALCULI ARE UNCHANGED. THERE IS NO HYDRONEPHROSIS. SMALL HEPATIC CYSTS. NORMAL APPENDIX.
== END 2017-08-26 23:58 | disposition home or self-care (01) ==
LOC: ED 20:13
DX: K59.00 Constipation, unspecified (principal); Q61.3 Polycystic kidney, unspecified; Z88.5 Allergy status to narcotic agent; I12.0 Hypertensive chronic kidney disease with stage 5 chronic kidney disease or end stage renal disease; N18.5 Chronic kidney disease, stage 5; Z72.0 Tobacco use; G89.29 Other chronic pain
CPT/HCPCS: 36415; 74176; 80053; 81003; 81015; 83605; 83690; 83735; 84702; 85025; 86140; 87086; 96360; 96374; 96375; 99283; A9270-GY; J1170; J2405; J2765

== ENCOUNTER 2017-11-06 04:54 | Emergency (ER) | payer OTHER ==
[2017-11-06 06:46] VITALS: BP 144/93
== END 2017-11-06 06:53 | disposition left against medical advice (07) ==
LOC: ED 04:54
DX: R11.2 Nausea with vomiting, unspecified (principal); Z53.21 Procedure and treatment not carried out due to patient leaving prior to being seen by health care provider

== ENCOUNTER → 2018-04-29 05:34 | Day surgery (SDC) | payer OTHER ==
[~2018-04-29 05:34] MED LIST: Atracurium* 10 MG/ML 10 ML VIAL ONE; Buffered Lidocaine 1% SYRIN* 1 ML/SYRINGE INTRADERM ONE; Bupivacaine 0.25% W/EPI* 10 ML SDV ONE; Dexamethasone IV* 4 MG/ML 1 ML (4 MG) IV SLOW PU ONE; Dexamethasone IV* 4 MG/ML 1 ML (4 MG) ONE; DiMENhydriNATE IV* 50 MG/ML VIAL IV PUSH PRN; DiMENhydriNATE IV* 50 MG/ML VIAL ONE; EPHEDrine (Pressors)* 50 MG/ML VIAL ONE; Famotidine IV* 10 MG/ML 2 ML (20 mg) IV ONE; Famotidine IV* 10 MG/ML 2 ML (20 mg) ONE; Glycopyrrolate IV* 0.2 MG/ML 1 ML VIAL ONE; Heparin DIALYSIS ONLY(*) 1,000 UNITS/ML VIAL ONE; Lactated Ringers 1000 ML Bag* 1,000 ML IV SCH; Midazolam* 1 MG/ML 5 ML VIAL (5 MG) ONE; Naloxone* 0.4 MG/ML 1 ML VIAL IV PRN; Neostigmine Methylsulfate* 1 MG/ML 10 ML VIAL (1 mg/ml) ONE; Ondansetron INJ* 2 MG/ML VIAL IV PRN; Ondansetron INJ* 2 MG/ML VIAL ONE; Propofol* 10 MG/ML 20 ML BTL ONE; ceFAZolin 2 GM PREMIX in ORs 2 GM/50 ML BAG IVPB ONE; fentaNYL* 50 MCG/ML 2 ML VIAL (100 MCG VIAL) ONE; fentaNYL* 50 MCG/ML 5 ML VIAL (250 MCG VIAL) ONE; oxyCODONE/Acetamin 5/325 MG* TAB ONE; oxyCODONE/Acetamin 5/325 MG* TAB PO PRN
[2018-04-29] MEDS: fentaNYL* 50 MCG/ML 2 ML VIAL (100 MCG VIAL) IV PRN ×4 (09:00→10:02)
--- NOTE | 2018-04-29 10:59 | OP ---
CC: Dr. King Olguin; Dr. Annita Quintanilla * DATE OF OPERATION: 04/29/18 - [facility] DATE OF : 85 SURGEON: Shola Bains MD CUSTOMER SERVICE TELLER: Pauly Shaw NP ANESTHESIOLOGIST: Dr. Gaspar. ANESTHESIA: General. PRE-OP DIAGNOSIS: End-stage renal disease. POST-OP DIAGNOSIS: End-stage renal disease. OPERATIVE PROCEDURE: Laparoscopic placement of peritoneal dialysis catheter. ESTIMATED BLOOD LOSS: Minimal. FLUIDS: Minimal crystalloid fluid given. INSTRUMENT USED: A 62-cm curled cath placed in the pouch of Jassi. DESCRIPTION OF PROCEDURE: The patient was identified in the preoperative area. Case was discussed with her and she was marked taking note of her belt line and for planned exit site of the catheter. She was brought to the operating room, placed on the operating table in the supine position. Preoperative antibiotics were given. Sequential devices were placed in bilateral lower extremities. General anesthesia was induced. The patient's abdomen was prepped and draped in standard surgical fashion, and a time-out was performed. A subcostal incision was made on the left at Espitia's point. This was deepened down to the anterior fascia, which was elevated and a Veress needle inserted into the abdominal cavity which was then allowed to insufflate to a pressure of 15 mmHg. The patient tolerated insufflation well. First needle was removed. An 8-mm trocar with an Optiview was then placed under direct vision. Laparoscope was inserted through this and there was no evidence of bleeding or injury. There was scant free fluid. There was no evidence of scarring to the anterior abdominal wall. Next, a 5-mm trocar was placed at the left lower quadrant, and the patient was placed in Trendelenburg. Review of the pelvis showed no scarring. Next, a 62- cm Covidien curled cath was placed into the abdomen. The curled portion was placed into the pelvis and we next tunneled a 5-mm trocar along the left rectus muscle. The catheter was then grasped and removed through this incision taking care to have one of the cuffs placed in the musculature. The other cuff came out of our exit site and the tubing was clamped. We made sure the catheter was in the appropriate position in the pelvis and next an omentopexy was performed with 0 Polysorb suture using an Endo Close device at the right upper quadrant. Next, the catheter was tunneled in the appropriate fashion in the abdominal wall to the planned exit site. It was then connected to the with ease, and it was also removed with ease. We then closed all the incisions with 4-0 Monocryl subcuticular sutures followed by sterile dressing. The patient tolerated the procedure well and was woken up in the OR and transferred back in stable condition. [id number]/CPS #: [id number]
[2018-04-29 12:40] VITALS: BP 139/85
== END | disposition home or self-care (01) ==
LOC: OR 05:34
PROVIDERS: ATTEND Surgery
DX: N18.6 End stage renal disease (principal); I12.9 Hypertensive chronic kidney disease with stage 1 through stage 4 chronic kidney disease, or unspecified chronic kidney disease; Z87.891 Personal history of nicotine dependence; D64.9 Anemia, unspecified; Q61.3 Polycystic kidney, unspecified
CPT/HCPCS: A9270-GY; J0690; J1100; J1240; J1644; J2250; J2405; J2704; J2710; J3010

== ENCOUNTER 2018-09-21 19:37 | Emergency (ER) | payer OTHER ==
--- NOTE | 2018-09-21 20:23 | ED ---
GI/ HPI - HPI Summary HPI Summary: This pt is a 32 y/o female presenting to [facility] c/o left lower back pain since a couple of days ago. She describes her pain as shooting out to the right and up a little. Pt reports she has had this pain in the past and believes it is from her polycystic kidney disease. She is currently on dialysis. Pt notes she is still producing urine and denies any urinary symptoms, dysuria, burning with urination. Her pain is aggravated with sneezing, deep breaths, and yawning. Associated symptoms of nausea. Denies fever, vomiting. Pt has taken Oxycodone for her pain without relief, the last time was last night. She reports she has an appointment next month in [place] to get on the transplant list. - History of Current Complaint Chief Complaint: EDFlankPain Time Seen by Provider: 09/21/18 20:16 Stated Complaint: BACK PAIN PER PT Hx Obtained From: Patient Onset/Duration: Started Days Ago, Still Present Timing: Lasting Days Current Severity: Severe Pain Intensity: 8 Location of Pain: Other - left lower back Associated Signs and Symptoms: Positive: Back Pain - left lower, Nausea. Negative: Vomiting, Fever, Hematuria, Dysuria, Chills Aggravating Factor(s): Deep Breaths - sneezing, yawning Alleviating Factor(s): Nothing - Allergy/Home Medications Allergies/Adverse Reactions: Allergies Allergy/AdvReac Type Severity Reaction Status Date / Time metoclopramide [From Reglan] Allergy Hives Verified 09/21/18 19:42 morphine Allergy Hives Verified 09/21/18 19:42 NSAIDS (Non-Steroidal AdvReac See Comment Verified 09/21/18 19:42 Anti-Inflamma PMH/Surg Hx/FS Hx/Imm Hx Endocrine/Hematology History: Reports: Hx Anemia - anemia- was getting iron in dialysis Denies: Hx Thyroid Disease Cardiovascular History: Reports: Hx Hypertension Denies: Other Cardiovascular Problems/Disorders Respiratory History: Denies: Hx Chronic Obstructive Pulmonary Disease (COPD), Hx Cystic Fibrosis, Other Respiratory Problems/Disorders GI History: Denies: Hx Gastroesophageal Reflux Disease, Other GI Disorders History: Reports: Hx Chronic Renal Failure - stage 5, Hx Kidney Infection - History of kidney stones, Other Problems/Disorders - Hx polycystic kidney disease Musculoskeletal History: Denies: Other Musculoskeletal History Sensory History: Reports: Hx Contacts or Glasses - Glasses Denies: Hx Legally Blind, Hx Deafness, Hx Hearing Aid Opthamlomology History: Reports: Hx Contacts or Glasses - Glasses Denies: Hx Legally Blind Neurological History: Denies: Other Neuro Impairments/Disorders - Surgical History Surgery Procedure, Year, and Place: Tubal ligation-2008. Port in upper right chest. Fistula Left wrist Hx Anesthesia Reactions: No - Immunization History Date of Tetanus Vaccine: utd Date of Influenza Vaccine: none Infectious Disease History: No Infectious Disease History: Denies: Traveled Outside the [place] in Last 30 Days - Family History Known Family History: Positive: Other - POS: polycystic kidney disease Negative: Seizure Disorder - Social History Alcohol Use: None Hx Substance Use: No Substance Use Type: Reports: None Hx Tobacco Use: Yes Smoking Status (MU): Former Smoker Type: Cigarettes Amount Used/How Often: 1 PPD for 13 years Have You Smoked in the Last Year: Yes Review of Systems Negative: Fever Positive: Nausea. Negative: Vomiting Negative: burning, dysuria, hematuria Musculoskeletal: Other - POSITIVE: left lower back All Other Systems Reviewed And Are Negative: Yes Physical Exam - Summary Physical Exam Summary: Appearance: The patient is well-nourished in no acute distress and in no acute pain. Skin: The skin is warm and dry and skin color reflects adequate perfusion. HEENT: The head is normocephalic and atraumatic. The pupils are equal and reactive. The conjunctivae are clear and without drainage. Nares are patent and without drainage. Mouth reveals moist mucous membranes and the throat is without erythema and exudate. The external ears are intact. The ear canals are patent and without drainage. The tympanic membranes are intact. Neck: the neck is supple with full range of motion and non-tender. There are no carotid bruits. There is no neck vein distension. Respiratory: Chest is non-tender. Lungs are clear to auscultation and breath sounds are symmetrical and equal. Cardiovascular: Heart is regular rate and rhythm. There is no murmur or rub auscultated. Abdomen: The abdomen is soft and non-tender. Musculoskeletal: Patient is tender in the left paralumbar spine. Negative straight leg raise. Neurological: Patient is alert and oriented to person, place and time. The patient has symmetrical motor strength in all four extremities. Psychiatric: The patient has an appropriate affect and does not exhibit any anxiety or depression. Triage Information Reviewed: Yes Vital Signs On Initial Exam: Initial Vitals Temp Pulse Resp BP Pulse Ox 98.4 F 86 16 138/96 100 09/21/18 19:40 09/21/18 19:40 09/21/18 19:40 09/21/18 19:40 09/21/18 19:40 Vital Signs Reviewed: Yes Diagnostics - Vital Signs Vital Signs Temp Pulse Resp BP Pulse Ox 09/21/18 19:40 98.4 F 86 16 138/96 100 - Laboratory Result Diagrams: 09/21/18 21:03 09/21/18 21:03 Lab Statement: Any lab studies that have been ordered have been reviewed, and results considered in the medical decision making process. - Ultrasound No standard instances Ultrasound Interpretation Completed By: Radiologist Summary of Ultrasound Findings: Renal US IMPRESSION: 1. Enlarged left kidney containing innumerable cysts consistent with history of polycystic kidney disease. 2. Left kidney also contains several echogenic calculi. No definite hydronephrosis. Dr. Diana has reviewed this report. GIGU Course/Dx - Course Course Of Treatment: Ms. Butler was nontoxic in appearance with stable vital signs here. Labs were obtained and not significantly different from her baseline. Ultrasound of her left kidney showed no acute pathology. She tells me she is just about out of her home pain medication and sees her doctor on Friday and I will bridge her. - Diagnoses Provider Diagnoses: Flank pain Discharge - Sign-Out/Discharge Documenting (check all that apply): Patient Departure - Discharge home Patient Received Moderate/Deep Sedation with Procedure: No - Discharge Plan Condition: Stable Disposition: HOME Prescriptions: oxyCODONE/Acetamin 5/325 MG* [Percocet 5/325 TAB*] 1 tab PO Q6H PRN #20 tab MDD 4 PRN Reason: Pain Patient Education Materials: Flank Pain (ED) Referrals: Annita Quintanilla DO [Primary Care Provider] - Additional Instructions: Follow up with your primary care provider as scheduled on Friday. RETURN TO THE ED FOR ANY WORSENING OR NEW SYMPTOMS. - Billing Disposition and Condition Condition: STABLE Disposition: Home - Attestation Statements Document Initiated by Scribe: Yes Documenting Scribe: Radha Trinidad Provider For Whom Scribe is Documenting (Include Credential): Meliton Diana MD Scribe Attestation: Radha Sawant, scribed for Meliton Diana MD on 09/21/18 at 2151. Scribe Documentation Reviewed: Yes Provider Attestation: The documentation as recorded by the Radha blount accurately reflects the service I personally performed and the decisions made by me, Meliton Diana MD Status of Scribe Document: Viewed
[2018-09-21] MEDS ORDERED: HYDROmorphone INJ1* 1 MG/ML SYRINGE IV SLOW PU ONE (20:51)
[2018-09-21] MEDS ORDERED: Ondansetron INJ* 2 MG/ML VIAL IV ONE (20:51)
[2018-09-21] MEDS ORDERED: NS 0.9% 1000 ML** 1,000 ML IV ONE (20:51)
[2018-09-21 21:16] LABS: ABS Basophils 0.1 10^3/ul (0-0.2); ABS Eosinophils 0.3 10^3/ul (0-0.6); ABS Lymphocytes 1.9 10^3/ul (1.0-4.8); ABS Monocytes 0.7 10^3/ul (0-0.8); ABS Neutrophils 6.8 10^3/ul (1.5-7.7); Eosinophil % 3.5 %; Hematocrit 32 % (35-47); Hemoglobin 10.8 g/dL (12.0-16.0); Mean Corpuscular HGB Conc 34 g/dL (31-36); Mean Corpuscular Hemoglobin 32 pg (27-31); Mean Corpuscular Volume 96 fL (80-97); Platelet Count 150 10^3/uL (150-450); Red Blood Count 3.34 10^6 /uL (3.70-4.87); Red Cell Distribution Width 14 % (10-15); White Blood Count 9.8 10^3/uL (3.5-10.8)
[2018-09-21 21:24] LABS: Urine Appearance Clear; Urine Bacteria Absent (Absent); Urine Bilirubin Negative (Negative); Urine Blood 3+ (Negative); Urine Color Straw; Urine Glucose 2+(150 mg/dL) (Negative); Urine Ketones Negative (Negative); Urine Nitrite Negative (Negative); Urine Protein 1+(30 mg/dL) (Negative); Urine Red Blood Cell 1+(3-5/hpf) (Absent); Urine Specific Gravity 1.005 (1.010-1.030); Urine Squamous Epithelial Cell Present (Absent); Urine Urobilinogen Negative (Negative); Urine White Blood Cell Trace(0-5/hpf) (Absent)
[2018-09-21 21:33] LABS: Albumin 3.4 g/dL (3.2-5.2); Albumin/Globulin Ratio 1.1 (1-3); BUN/Creatinine Ratio 3.4 (8-20); C Reactive Protein 3.43 mg/L (<8.01); Calcium 8.2 mg/dL (8.6-10.3); EGFR African American 4.5 (>60); EGFR Non-African American 3.7 (>60); Potassium 3.5 mmol/L (3.5-5.0); Total Bilirubin 0.2 mg/dL (0.2-1.0); Total Protein 6.4 g/dL (6.4-8.9)
[2018-09-21 21:57] VITALS: BP 126/93
== END 2018-09-21 21:56 | disposition home or self-care (01) ==
LOC: ED 19:37
DX: R10.30 Lower abdominal pain, unspecified (principal); I12.0 Hypertensive chronic kidney disease with stage 5 chronic kidney disease or end stage renal disease; D63.1 Anemia in chronic kidney disease; N18.5 Chronic kidney disease, stage 5; Z99.2 Dependence on renal dialysis; Z88.5 Allergy status to narcotic agent; Z88.8 Allergy status to other drugs, medicaments and biological substances; Z87.891 Personal history of nicotine dependence; Q61.3 Polycystic kidney, unspecified
CPT/HCPCS: 36415; 76775; 80053; 81003; 81015; 85025; 86140; 87086; 96361; 96374; 96375; 99283; J1170; J2405

== ENCOUNTER 2019-02-13 14:18 | Inpatient (IN) | payer OTHER ==
[2019-02-13] MEDS ORDERED: NS 0.9% 1000 ML** 1,000 ML IV ONE (15:09)
--- NOTE | 2019-02-13 15:17 | ED ---
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 She notes that she is on dialysis for kidney failure due to polycystic kidneys. She notes that the pain is like a constant cramping, has never had this pain before, and rates her current pain severity an 8/10. No aggravating or alleviating factors noted. She also reports some dizziness but denies any vomiting or diarrhea. She has Hx of appendectomy. - History of Current Complaint Chief Complaint: EDAbdPain Stated Complaint: SEVERE ABDOMINAL PAIN- DIALYSIS PT Time Seen by Provider: 02/13/19 15:10 Hx Obtained From: Patient Onset/Duration: Sudden Onset, Lasting Hours, Still Present Timing: Hours Severity Initially: Severe Severity Currently: Severe Pain Intensity: 8 Pain Scale Used: 0-10 Numeric Location: Diffuse Character: Cramping Aggravating Factor(s): Nothing Alleviating Factor(s): Nothing Associated Signs and Symptoms: Positive: Dizzy. Negative: Vomiting, Diarrhea Allergies/Adverse Reactions: Allergies Allergy/AdvReac Type Severity Reaction Status Date / Time metoclopramide [From Reglan] Allergy Hives Verified 02/13/19 14:27 morphine Allergy Hives Verified 02/13/19 14:27 NSAIDS (Non-Steroidal AdvReac See Comment Verified 02/13/19 14:27 Anti-Inflamma PMH/Surg Hx/FS Hx/Imm Hx Endocrine/Hematology History: Reports: Hx Anemia - anemia- was getting iron in dialysis Denies: Hx Thyroid Disease Cardiovascular History: Reports: Hx Hypertension Denies: Other Cardiovascular Problems/Disorders Respiratory History: Denies: Hx Chronic Obstructive Pulmonary Disease (COPD), Hx Cystic Fibrosis, Other Respiratory Problems/Disorders GI History: Denies: Hx Gastroesophageal Reflux Disease, Other GI Disorders History: Reports: Hx Chronic Renal Failure - stage 5, Hx Kidney Infection - History of kidney stones, Other Problems/Disorders - Hx polycystic kidney disease Musculoskeletal History: Denies: Other Musculoskeletal History Sensory History: Reports: Hx Contacts or Glasses - Glasses Denies: Hx Legally Blind, Hx Deafness, Hx Hearing Aid Opthamlomology History: Reports: Hx Contacts or Glasses - Glasses Denies: Hx Legally Blind Neurological History: Denies: Other Neuro Impairments/Disorders - Surgical History Surgery Procedure, Year, and Place: Tubal ligation-2007. Port in upper right chest. Fistula Left wrist Hx Anesthesia Reactions: No - Immunization History Date of Tetanus Vaccine: utd Date of Influenza Vaccine: none Infectious Disease History: No Infectious Disease History: Denies: Traveled Outside the [place] in Last 30 Days - Family History Known Family History: Positive: Other - POS: polycystic kidney disease Negative: Seizure Disorder - Social History Alcohol Use: None Hx Substance Use: No Substance Use Type: Reports: None Hx Tobacco Use: Yes Smoking Status (MU): Former Smoker Type: Cigarettes Amount Used/How Often: 1 PPD for 13 years Have You Smoked in the Last Year: Yes Review of Systems Negative: Vomiting, Diarrhea Neurological: Other - pos - dizziness All Other Systems Reviewed And Are Negative: Yes Physical Exam - Summary Physical Exam Summary: Constitutional: Well-developed, Well-nourished, Alert. (-) Distressed Skin: Warm, Dry HENT: Normocephalic; Atraumatic Eyes: Conjunctiva normal Neck: Musculoskeletal ROM normal neck. (-) JVD, (-) Stridor, (-) Tracheal deviation Cardio: Rhythm regular, rate normal, Heart sounds normal; Intact distal pulses; The pedal pulses are 2+ and symmetric. Radial pulses are 2+ and symmetric. (-) Murmur Pulmonary/Chest wall: Effort normal. (-) Respiratory distress, (-) Wheezes, (-) Rales Abd: Soft, (-) tenderness, (-) Distension, (-) Guarding, (-) Rebound, Generalized lower abd tenderness, no flank tenderness, dialysis port noted Musculoskeletal: (-) Edema Lymph: (-) Cervical adenopathy Neuro: Alert, Oriented x3 Psych: Mood and affect Normal Triage Information Reviewed: Yes Vital Signs On Initial Exam: Initial Vitals Temp Pulse Resp BP Pulse Ox 97.0 F 103 18 123/105 93 02/13/19 14:22 02/13/19 14:22 02/13/19 14:22 02/13/19 14:22 02/13/19 14:22 Vital Signs Reviewed: Yes Procedures - Sedation Patient Received Moderate/Deep Sedation with Procedure: No Diagnostics - Vital Signs Vital Signs Temp Pulse Resp BP Pulse Ox 02/13/19 14:22 97.0 F 103 18 123/105 93 - Laboratory Result Diagrams: 02/13/19 15:28 02/13/19 15:28 Lab Statement: Any lab studies that have been ordered have been reviewed, and results considered in the medical decision making process. - CT CT A/P CT Interpretation Completed By: Radiologist Summary of CT Findings: Impression: 1. POLYCYSTIC KIDNEY DISEASE. A FEW NEW HYPERDENSE RENAL CYSTS, SEEN BILATERALLY, LIKELY CONTAINING PROTEINACEOUS OR HEMORRHAGIC CONTENTS. 2. NO HYDROURETERONEPHROSIS OR URETERAL CALCULUS IS IDENTIFIED. 3. THE PERITONEAL DIALYSIS CATHETER COILS AND TERMINATES IN THE MID PELVIS. 4. TRACE PERIHEPATIC AND PELVIC ASCITES. ED Physician has reviewed this report. 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 She notes that she is on dialysis for kidney failure due to polycystic kidneys. She notes that the pain is like a constant cramping , has never had this pain before, and rates her current pain severity an 8/10. Test results normal except for WBC 14.9, MCH 32, MPV 6.7, Absolute Neuts 13.4, Potassium 3.0, Chloride 100, Anion Gap 13, BUN 36, Creatinine 12.84, BUN/ Creatinine 2.8, Glucose 136, AST 10, and ALT 6. A CT A/P reveals: 1. POLYCYSTIC KIDNEY DISEASE. A FEW NEW HYPERDENSE RENAL CYSTS, SEEN BILATERALLY, LIKELY CONTAINING PROTEINACEOUS OR HEMORRHAGIC CONTENTS. 2. NO HYDROURETERONEPHROSIS OR URETERAL CALCULUS IS IDENTIFIED.3. THE PERITONEAL DIALYSIS CATHETER COILS AND TERMINATES IN THE MID PELVIS. 4. TRACE PERIHEPATIC AND PELVIC ASCITES. Final Dx are polycystic kidney disease and abdominal pain. Dr. Osorio will admit the pt to [facility] Pt is agreeable with this plan. - Diagnoses Provider Diagnoses: Polycystic kidney disease, Abdominal pain - Provider Notifications Discussed Care Of Patient With: Rachel Osorio - Dr. Osorio will admit the pt to [facility] Time Discussed With Above Provider: 17:55 Instructed by Provider To: Admit As Inpatient Discharge ED - Sign-Out/Discharge Documenting (check all that apply): Patient Departure - admit - Discharge Plan Condition: Stable Disposition: ADMITTED TO [facility] Referrals: Annita Quintanilla DO [Primary Care Provider] - - Billing Disposition and Condition Condition: STABLE Disposition: Admitted to [facility] - Attestation Statements Document Initiated by Scribe: Yes Documenting Scribe: David Najera Provider For Whom Scribe is Documenting (Include Credential): Elbert Haskins DO Scribe Attestation: I, David Najera, scribed for Elbert Haskins DO on 02/13/19 at 1822. Scribe Documentation Reviewed: Yes Provider Attestation: The documentation as recorded by the [email or web address] accurately reflects the service I personally performed and the decisions made by me, Elbert Haskins DO Status of Scribe Document: Viewed
[2019-02-13] MEDS ORDERED: HYDROmorphone INJ* 0.5 MG/0.5 ML SYRINGE IV ONE ×3 (15:18→18:02)
[2019-02-13] MEDS ORDERED: Ondansetron INJ* 2 MG/ML VIAL IV ONE ×2 (15:38→18:15)
[2019-02-13 15:40] LABS: ABS Eosinophils 0.1 10^3/ul (0-0.6); ABS Monocytes 0.4 10^3/ul (0-0.8); ABS Neutrophils 13.4 10^3/ul (1.5-7.7); Eosinophil % 0.4 %; Hematocrit 40 % (35-47); Hemoglobin 13.1 g/dL (12.0-16.0); Lymphocyte % 6.8 %; Mean Corpuscular HGB Conc 33 g/dL (31-36); Mean Corpuscular Hemoglobin 32 pg (27-31); Mean Corpuscular Volume 96 fL (80-97); Mean Platelet Volume 6.7 fL (7.4-10.4); Platelet Count 169 10^3/uL (150-450); Red Blood Count 4.13 10^6 /uL (3.70-4.87); Red Cell Distribution Width 15 % (10-15); White Blood Count 14.9 10^3/uL (3.5-10.8)
[2019-02-13 15:51] LABS: Albumin 3.7 g/dL (3.2-5.2); BUN/Creatinine Ratio 2.8 (8-20); Calcium 9.2 mg/dL (8.6-10.3); EGFR African American 4.1 (>60); EGFR Non-African American 3.4 (>60); Globulin 3.7 g/dL (2-4); Total Bilirubin 0.4 mg/dL (0.2-1.0); Total Protein 7.4 g/dL (6.4-8.9)
[2019-02-13 15:57] LABS: HCG Pregnancy 1.31 mIU/mL
[2019-02-13] MEDS ORDERED: Ciprofloxacin 400MG IVPREMIX(* 400 MG/200 ML BAG IVPB ONE (17:49)
[2019-02-13] MEDS ORDERED: NS 0.9% 1000 ML** 1,000 ML IV SCH (18:00)
[2019-02-13] MEDS ORDERED: Potassium Chlor TAB* 20 MEQ TAB.ER PO ONE (18:22)
[2019-02-13] MEDS ORDERED: Vancomycin(*) 1,000 MG in NS 0.9% 250 ML* 250 ML IV ONE (18:23)
[2019-02-13 18:31] LABS: Body Fluid Source Peritonial Fluid
[2019-02-13] MEDS ORDERED: Acetaminophen TAB* 325 MG PO PRN (18:43)
[2019-02-13] MEDS ORDERED: Ondansetron INJ* 2 MG/ML VIAL IV SCH (19:00)
[2019-02-13] MEDS ORDERED: Ciprofloxacin 400MG IVPREMIX(* 400 MG/200 ML BAG IVPB SCH (19:00)
[2019-02-13 19:11] LABS: Body Fluid Band 1 %; Body Fluid Mono 3 %
--- NOTE | 2019-02-13 19:43 | PN ---
PROGRESS NOTE: DATE OF VISIT: 02/13/19 REQUESTING PHYSICIAN: Dr. Haskins/ER physician. SUBJECTIVE: The patient was seen at the bedside in the ER. Reports significant diffuse abdominal pain and appears very uncomfortable and in pain, also is very nauseous. Pain started earlier today. Vitals and labs have been reviewed and CT scan has been reviewed. PHYSICAL EXAMINATION: HEENT: NC/AT. Heart: S1, S2 present. Regular at the time of exam. Lungs: Clear to auscultation. Abdomen noted to have mild guarding, diffuse tenderness to palpation. No rebound. Extremities noted to have no edema. Neuro: Alert, oriented. ASSESSMENT AND PLAN: 1. End-stage renal disease secondary to polycystic kidney disease, on peritoneal dialysis. 2. Likely cyst infection versus urinary tract infection with possible cyst rupture. Recommend institution of IV ciprofloxacin for improved cyst penetration. The patient noted to have an elevated white count. Also recommend panculturing the patient and checking blood cultures, urine cultures and chest x -ray for completion. We will start with IV ciprofloxacin and recommend only 1 g of vancomycin p.o. for gram-positive coverage and continuing on IV ciprofloxacin and evaluating in the next 24 hours if further antibiotics need to be expanded based on clinical progress. 3. Pain management with Dilaudid and p.o. medications. 4. Nausea and vomiting secondary to infection. Zofran as needed. 5. Hypokalemia. Recommend giving her 40 mEq of potassium. 6. End-stage renal disease, on peritoneal dialysis. We will discuss PD orders with the PD nurse, who will be here later to set up her PD overnight. 7. We will check PD fluid culture for completion. 8. Case was discussed with nurse practitioner, Johnna Joy. Please see her history and physical for full details. We will follow with the medical team and be available for any questions. [id number]/[facility] #: [id number] NEHEMIAS
[2019-02-13] MEDS: HYDROmorphone INJ1* 1 MG/ML SYRINGE IV PRN ×2 (19:57→22:57)
[2019-02-13] MEDS ORDERED: Vancomycin per Pharmacy* NOTE FOLLOW UP SCH (20:00)
[2019-02-13] MEDS ORDERED: Vancomycin - DIALYSIS DOSING* NOTE FOLLOW UP SCH (20:01)
[2019-02-13] MEDS: oxyCODONE/Acetamin 5/325 MG* TAB PO PRN (20:42)
[2019-02-13 20:44] LABS: Urine Appearance Cloudy; Urine Bilirubin Negative (Negative); Urine Blood 2+ (Negative); Urine Color Yellow; Urine Glucose 2+(150 mg/dL) (Negative); Urine Ketones Trace (Negative); Urine Nitrite Negative (Negative); Urine Protein 1+(30 mg/dL) (Negative); Urine Specific Gravity 1.006 (1.010-1.030); Urine Urobilinogen Negative (Negative)
[2019-02-13 20:54] LABS: Urine Bacteria 1+ (Absent); Urine Red Blood Cell Trace(0-2/hpf) (Absent); Urine Squamous Epithelial Cell Present (Absent); Urine White Blood Cell Trace(0-5/hpf) (Absent)
--- NOTE | 2019-02-13 22:02 | HP ---
ADMISSION HISTORY AND PHYSICAL: DATE OF ADMISSION: 02/13/19 PRIMARY CARE PHYSICIAN: Dr. Annita Quintanilla PROVIDER: Johnna Spear NP ATTENDING PHYSICIAN: Dr. Osorio.* (DICTATED BY JOHNNA SPEAR NP) CHIEF COMPLAINT: Abdominal pain and nausea. HISTORY OF PRESENT ILLNESS: This is a 33-year-old female with past medical history significant for polycystic kidney disease and chronic kidney disease stage V with peritoneal dialysis who came to the emergency room on 02/13/19 for relatively sudden onset of abdominal pain and cramping today, started this afternoon around 2:25, feeling dizzy, lightheaded, and nauseated but with no vomiting. Pain is described as constant, cramping, and sharp throughout the whole abdomen as well as bilateral flank. Nothing makes it better, touching or moving makes it worse. Pain is rated between 8 to 10/10 pain. In the emergency room, she has received a liter of IV fluids, IV Cipro, Dilaudid and Zofran. The patient had brought in a sample of her own peritoneal fluid that she drained today before coming, which has been sent for culture. Chest x-ray done as well as abdominal and pelvic CT scan. PAST MEDICAL HISTORY: 1. Polycystic kidney disease. 2. Chronic kidney disease stage V with peritoneal dialysis. 3. Hypertension. 4. Anemia. PAST SURGICAL HISTORY: Tubal ligation and port placement and removal from the right chest wall and left wrist fistula, which failed. HOME MEDICATIONS: 1. Calcitriol 0.5 mcg p.o. daily. 2. Percocet 7.5 mg q.6 hours p.r.n., max daily dose 3. 3. Mupirocin ointment for daily application around peritoneal dialysis catheter. ALLERGIES: METOCLOPRAMIDE, MORPHINE, and NSAIDs. FAMILY HISTORY: Noncontributory. SOCIAL HISTORY: Quit smoking 2 years ago but did not specify how much she had been smoking. Denies any alcohol or recreational substance use. Does not work. She is , has 3 children. REVIEW OF SYSTEMS: Positive for experiencing hot flashes for the past several days as well as abdominal sharp crampy pain, nausea with no vomiting. Negative for any chest pain, palpitations, shortness of breath, or any issues with moving her bowel or bladder. PHYSICAL EXAMINATION GENERAL: This is a well-developed, young female, seen resting in the stretcher , in acute distress. VITAL SIGNS: Temperature is 100.1, pulse is 111, respirations 16, O2 sats 99, blood pressure is 103/81. HEENT: Eyes: Conjunctive pink and moist. Slight conjunctival injection bilaterally. PERRLA. EOMs intact. ENT: Mucous membranes moist. Oropharynx clear. NECK: Supple. RESPIRATORY: Lungs sounds diminished throughout bilaterally on room air. No accessory muscle use noted. CARDIAC: S1, S2 present. Heart rate regular but tachy. No murmurs, gallops or rubs appreciated. ABDOMEN: Softly distended, tender throughout all quadrants as well as bilateral flank. MUSCULOSKELETAL: No clubbing or cyanosis appreciated for range of motion of all extremities. SKIN: No rashes appreciated. Peritoneal dialysis present to the left lower quadrant. Dressing is clean, dry, and intact. No surrounding erythema, edema, or drainage. NEURO: Sensation intact to light touch. Moves all extremities. No focal deficits appreciated. PSYCH: She is alert and oriented x3, anxious. LABORATORY DATA: Pertinent lab data: WBC 14.9, potassium 3.0, chloride 100, anion gap 13, BUN 36, creatinine 12.84, GFR 3.4, BUN and creatinine ratio 2.8, glucose 136, lactic acid 0.8. AST 10, ALT 6. Peritoneal fluid is cloudy in appearance with a white blood cell count of 1373. DIAGNOSTIC STUDIES: EKG showed sinus tachycardia. Abdominal pelvic ultrasound without contrast showed polycystic kidney disease with a few new hyperdense renal cysts seen bilaterally likely containing proteinaceous or hemorrhagic contents. No hydroureteronephrosis or ureteral calculus identified. Peritoneal dialysis catheter coils and terminates in the mid pelvis and trace perihepatic and pelvic ascites. ASSESSMENT AND PLAN: 1. My impression is this is a 33-year-old female with a past medical history significant for polycystic disease and chronic kidney disease stage V with peritoneal dialysis admitted on 02/13/19 for possible cyst infection/UTI. The patient received 400 mg of Cipro IV in the emergency room. We will continue that dosage q.12 hours, also received 1 g of IV vanco for gram-positive coverage. We will await sending labs to determine need to continue vancomycin. The patient is positive for sepsis, had 1 L of fluids in the emergency room. We will order another liter as well as maintenance IV fluids. Last blood pressure is on the softer side though lactic acid remains below 2. No concerns for septic shock at this point in time. We will focus on pain control. She is allergic to morphine, so we will use Dilaudid. Had a conversation with the patient about trying Compazine because of the several drug to drug interactions with Zofran causing QT prolongation. She stated that typically it has worked for her but is willing to try it, should it fail we will switch to Zofran. 2. Hypokalemia. Potassium on admission was 3.0. Repleted with 40 mEq p.o. We will recheck levels in the a.m., magnesium was 2.0. The patient is on telemetry monitoring. 3. Chronic kidney disease stage V with peritoneal dialysis. Peritoneal fluid was sent for culture and Gram stain. PD nurse contacted by Dr. Osorio, will be dialyzed tonight. Continue calcitriol 0.5 mcg p.o. daily. 4. DVT prophylaxis. The patient is at low risk, encourage ambulation. 5. Code status is full code. 6. Condition is guarded. 7. Disposition. Admit inpatient to [address] [place] [address]. TIME SPENT: Time spent with the patient is about 60 minutes with half of that spent [id number]. JOHNNA SPEAR, COREY [id number]/[facility] #: [id number] [facility]ITALL[facility]la
[2019-02-13] MEDS: NS 0.9% 1000 ML** 1,000 ML IV SCH (22:08)
[2019-02-13] MEDS: Docusate CAP* 100 MG PO SCH (22:09)
[2019-02-13] MEDS: Senna TAB 8.6 mg* TAB PO SCH (22:09)
[2019-02-13] MEDS: PROCHLORPERAZINE INJ 5 MG/ML 2 ML VIAL IV PRN (22:55)
[2019-02-14] MEDS: HYDROmorphone INJ1* 1 MG/ML SYRINGE IV PRN ×6 (03:28→20:06)
[2019-02-14] MEDS: Ciprofloxacin 200mg IVPREMIX(* 200 MG/100 ML BAG IV SCH ×2 (05:53→18:30)
[2019-02-14] MEDS ORDERED: Ciprofloxacin 400MG IVPREMIX(* 400 MG/200 ML BAG IVPB SCH (06:00)
[2019-02-14] MEDS ORDERED: Vancomycin Random Level* NOTE FOLLOW UP ONE (06:00)
[2019-02-14] MEDS: PROCHLORPERAZINE INJ 5 MG/ML 2 ML VIAL IV PRN ×2 (06:26→20:05)
[2019-02-14] MEDS ORDERED: Vancomycin per Pharmacy* NOTE FOLLOW UP PRN (08:00)
[2019-02-14] MEDS: Docusate CAP* 100 MG PO SCH ×2 (09:58→21:19)
[2019-02-14] MEDS: NS 0.9% 1000 ML** 1,000 ML IV SCH (10:05)
[2019-02-14] MEDS ORDERED: NS 0.9% 1000 ML** 1,000 ML IV SCH (11:31)
--- NOTE | 2019-02-14 11:37 | PN ---
Subjective Date of Service: 02/14/19 Interval History: Reports some improvement in abd pain.Still severe Objective Active Medications: Acetaminophen (Tylenol Tab*) 650 mg PO Q4H PRN PRN Reason: MILD PAIN or TEMP > 100.4 Docusate Sodium (Colace Cap*) 100 mg PO BID [facility] Last Admin: 02/14/19 09:58 Dose: 100 mg Hydromorphone HCl (Dilaudid Inj1s*) 1 mg IV Q3H PRN PRN Reason: PAIN - SEVERE Last Admin: 02/14/19 09:58 Dose: 1 mg Ciprofloxacin/Dextrose (Cipro 200 Mg Ivpremix(*)) 200 mg in 100 mls @ 100 mls/ hr IV Q12H [facility] Last Admin: 02/14/19 05:53 Dose: 100 mls/hr Sodium Chloride (Ns 0.9% 1000 Ml) 1,000 mls @ 75 mls/hr IV PER RATE [facility] Stop: 02/15/19 11:30 Oxycodone/Acetaminophen (Percocet 5/325 Tab*) 1 tab PO Q4H PRN PRN Reason: PAIN - MODERATE Last Admin: 02/13/19 20:42 Dose: 1 tab Pharmacy Consult (Vancomycin Per Pharmacy*) 1 note FOLLOW UP . PRN; Protocol PRN Reason: PER PROTOCOL Prochlorperazine Edisylate (Compazine Inj*) 10 mg IV Q6H PRN PRN Reason: NAUSEA/VOMITING Last Admin: 02/14/19 06:26 Dose: 10 mg Senna (Senokot 8.6 Mg Tab*) 1 tab PO BEDTIME [facility] Last Admin: 02/13/19 22:09 Dose: Not Given Vital Signs - 8 hr 02/14/19 02/14/19 02/14/19 04:30 06:29 07:27 Temperature 98.1 F Pulse Rate 68 Respiratory 20 24 18 Rate Blood Pressure 100/60 (mmHg) O2 Sat by Pulse 99 Oximetry 02/14/19 02/14/19 08:30 09:58 Temperature Pulse Rate Respiratory 20 20 Rate Blood Pressure (mmHg) O2 Sat by Pulse Oximetry Oxygen Devices in Use Now: None Eyes: No Scleral Icterus Neck: NL Appearance and Movements; NL JVP Respiratory: Symmetrical Chest Expansion and Respiratory Effort, Clear to Auscultation Cardiovascular: NL Sounds; No Murmurs; No JVD, RRR Abdominal: - - min guarding,no rebound, abd tender diffusely Extremities: No Edema Neurological: Alert and Oriented x 3 Result Diagrams: 02/13/19 15:28 02/13/19 15:28 Microbiology and Other Data: Microbiology 02/13/19 18:03 Gram Stain - Final Peritoneal Dialysis Effluent Body Fluid Culture - Preliminary Pasteurella Multocida 02/13/19 23:10 Nasal Screen MRSA (PCR) - Final Nasal Mrsa Not Detected Assess/Plan/Problems-Billing Assessment: - Patient Problems (1) Polycystic kidney disease Current Visit: Yes Status: Acute Code(s): Q61.3 - POLYCYSTIC KIDNEY, UNSPECIFIED SNOMED Code(s): 678391434 Comment: Likely Cyst infection Possible UTI Cultures pending PEritoneal fluid culture pending as well to conclusively r/o peritonitis. Fluid clear and less likely Started on IV Cipro which has better cyst penetration in PKD patients. And some improvement.Continue Cipro Given one dose of 1 g Vanco for gram pos coverage Await cultures Expand antibiotics if warranted in 24h (2) UTI (urinary tract infection) Current Visit: Yes Status: Acute Comment: poss pyelonephritis/ uti diff to distinguish sometimes between pyelo and cyst infection as can be related in PKD patients Still makes urine Urine culture pending Blood culture pending (3) Pain Current Visit: Yes Status: Acute Code(s): R52 - PAIN, UNSPECIFIED SNOMED Code(s): 59059835 Comment: Dilaudid prn for now multiple drug allergies acute sec to cyst infection/ poss uti/ ruptured cyst in consideration.no hematuria (4) ESRD (end stage renal disease) on dialysis Current Visit: Yes Status: Acute Code(s): N18.6 - END STAGE RENAL DISEASE; Z99.2 - DEPENDENCE ON RENAL DIALYSIS SNOMED Code(s): 707206075 Comment: On peritoneal dialysis Prev on HD ESRD sec ADPKD Transplant eval in progress-Strong Will continue PD per home prescription while in the hospital with a cycler (5) Hypokalemia Current Visit: Yes Status: Acute Code(s): E87.6 - HYPOKALEMIA SNOMED Code( s): 76654638 Comment: Replaced with 40 meq K Labs from this am pending.Pt intially refused as she is a difficult stick but agrees to get them
[2019-02-14] MEDS ORDERED: Piperacillin/Tazobac ADVAN(*) 3.375 GM in NS 0.9% 100 ML* 100 ML IVPB ONE (11:50)
[2019-02-14] MEDS ORDERED: Zosyn per Pharmacy* NOTE FOLLOW UP SCH (12:00)
[2019-02-14] MEDS ORDERED: Heparin DIALYSIS ONLY(*) 1,000 UNITS/ML VIAL DIALYSIS ONE (12:00)
[2019-02-14 16:18] LABS: Calcium 7.6 mg/dL (8.6-10.3); EGFR African American 5.9 (>60); EGFR Non-African American 4.9 (>60)
[2019-02-14 16:19] LABS: Potassium 3.1 mmol/L (3.5-5.0)
[2019-02-14 16:45] LABS: Vancomycin Random 16.1 mcg/mL
[2019-02-14] MEDS: Mupirocin 2% OINT* TUBE TOPICAL SCH (16:53)
[2019-02-14] MEDS: ZOSYN 3.375 GM Q12H per EXTENDED INFUSION IVPB SCH ×2 (21:18)
[2019-02-14] MEDS: Senna TAB 8.6 mg* TAB PO SCH (21:19)
[2019-02-15] MEDS: HYDROmorphone INJ1* 1 MG/ML SYRINGE IV PRN ×5 (00:17→16:44)
[2019-02-15] MEDS: oxyCODONE/Acetamin 5/325 MG* TAB PO PRN (00:23)
[2019-02-15] MEDS: PROCHLORPERAZINE INJ 5 MG/ML 2 ML VIAL IV PRN ×3 (03:29→16:43)
[2019-02-15 04:57] LABS: ABS Eosinophils 0.1 10^3/ul (0-0.6); ABS Lymphocytes 0.9 10^3/ul (1.0-4.8); ABS Monocytes 0.3 10^3/ul (0-0.8); ABS Neutrophils 4.5 10^3/ul (1.5-7.7); Eosinophil % 2.2 %; Hematocrit 42 % (35-47); Hemoglobin 14.1 g/dL (12.0-16.0); Lymphocyte % 16.1 %; Mean Corpuscular HGB Conc 33 g/dL (31-36); Mean Corpuscular Hemoglobin 32 pg (27-31); Mean Corpuscular Volume 97 fL (80-97); Red Blood Count 4.37 10^6 /uL (3.70-4.87); Red Cell Distribution Width 15 % (10-15); White Blood Count 5.9 10^3/uL (3.5-10.8)
[2019-02-15 05:06] LABS: BUN/Creatinine Ratio 2.9 (8-20); EGFR African American 5.6 (>60); EGFR Non-African American 4.6 (>60); Potassium 3.1 mmol/L (3.5-5.0)
[2019-02-15 05:30] LABS: Mean Platelet Volume 6.8 fL (7.4-10.4); Platelet Count 94 10^3/uL (150-450)
[2019-02-15] MEDS: Ciprofloxacin 200mg IVPREMIX(* 200 MG/100 ML BAG IV SCH (05:52)
[2019-02-15] MEDS: Docusate CAP* 100 MG PO SCH ×2 (08:24→22:35)
[2019-02-15] MEDS: Mupirocin 2% OINT* TUBE TOPICAL SCH (08:25)
[2019-02-15] MEDS: ZOSYN 3.375 GM Q12H per EXTENDED INFUSION IVPB SCH ×4 (08:43→22:34)
--- NOTE | 2019-02-15 11:54 | PN ---
Subjective Date of Service: 02/15/19 Interval History: Patient feels poorly this morning. She states she is dizzy, feels she might faint. Denies headache, double vision, vertigo. Had abdo pain 6/10 earlier this AM, now 2/10 post pain medications. Denies knowledge of hypokalemia. Had PD yesterday during day, but usually does at night. Does have cats at home, Dr. Osorio advised keeping cats out of room with PD equipment. Family History: Unchanged from Admission Social History: Unchanged from Admission Past Medical History: Unchanged from Admission Objective Active Medications: Acetaminophen (Tylenol Tab*) 650 mg PO Q4H PRN PRN Reason: MILD PAIN or TEMP > 100.4 Docusate Sodium (Colace Cap*) 100 mg PO BID [facility] Last Admin: 02/15/19 08:24 Dose: 100 mg Hydromorphone HCl (Dilaudid Inj1s*) 1 mg IV Q3H PRN PRN Reason: PAIN - SEVERE Last Admin: 02/15/19 08:24 Dose: 1 mg Ciprofloxacin/Dextrose (Cipro 200 Mg Ivpremix(*)) 200 mg in 100 mls @ 100 mls/ hr IV Q12H [facility] Last Admin: 02/15/19 05:52 Dose: 100 mls/hr Piperacillin Sod/Tazobactam (Sod 3.375 gm/ Sodium Chloride) 100 mls @ 25 mls/ hr IVPB Q12H [facility] Last Admin: 02/15/19 08:43 Dose: 25 mls/hr Mupirocin (Bactroban 2 % Oint*) 1 applic TOPICAL DAILY [facility] Last Admin: 02/15/19 08:25 Dose: 1 applic Oxycodone/Acetaminophen (Percocet 5/325 Tab*) 1 tab PO Q4H PRN PRN Reason: PAIN - MODERATE Last Admin: 02/15/19 00:23 Dose: 1 tab Prochlorperazine Edisylate (Compazine Inj*) 10 mg IV Q6H PRN PRN Reason: NAUSEA/VOMITING Last Admin: 02/15/19 08:29 Dose: 10 mg Senna (Senokot 8.6 Mg Tab*) 1 tab PO BEDTIME [facility] Last Admin: 02/14/19 21:19 Dose: 1 tab Vital Signs - 8 hr 02/15/19 02/15/1902/15/19 04:30 07:45 08:00 Temperature 37.1 C Pulse Rate 95 Respiratory 18 16 17 Rate Blood Pressure 112/67 (mmHg) O2 Sat by Pulse 97 Oximetry 02/15/19 02/15/19 02/15/19 08:24 09:30 10:50 Temperature 36.7 C Pulse Rate 88 Respiratory 17 17 18 Rate Blood Pressure 115/76 (mmHg) O2 Sat by Pulse 97 Oximetry Oxygen Devices in Use Now: None Appearance: alert, looks depressed Eyes: No Scleral Icterus Respiratory: Symmetrical Chest Expansion and Respiratory Effort Cardiovascular: NL Sounds; No Murmurs; No JVD Abdominal: No Hepatosplenomegaly, - - PD cath LLQ, umbilicus w/ piercing, tender RUQ Neurological: Alert and Oriented x 3 Lines/Tubes/Other Access: Clean, Dry and Intact Peripheral IV, Clean, Dry and Intact Other Access - PD cath Nutrition: Taking PO's Result Diagrams: 02/15/19 04:42 02/15/19 04:42 Microbiology and Other Data: Microbiology 02/13/19 18:03 Gram Stain - Final Peritoneal Dialysis Effluent Body Fluid Culture - Preliminary Pasteurella Multocida 02/13/19 23:10 Nasal Screen MRSA (PCR) - Final Nasal Mrsa Not Detected Assess/Plan/Problems-Billing Assessment: 33 year old woman with ESRD due to ADPCKD, here with sepsis due to pasteurella in peritoneal fluid. 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 Gonzalez -Will continue Zosyn, stop cipro, isolate sensitive to cefazolin and meropenem -Will discuss with Dr. Vera/ID -May need intraperitoneal antibiotics. (2) ESRD (end stage renal disease) on dialysis Current Visit: Yes Status: Acute Priority: Medium Code(s): N18.6 - END STAGE RENAL DISEASE; Z99.2 - DEPENDENCE ON RENAL DIALYSIS SNOMED Code(s): 207507795 Comment: On peritoneal dialysis, will dwell tonight as at home Transplant eval in progress-Strong Will continue PD per home prescription while in the hospital with a cycler (3) Hypokalemia Current Visit: Yes Status: Acute Priority: Medium Code(s): E87.6 - HYPOKALEMIA SNOMED Code(s): 74524444 Comment: -Replaced with 40 meq K yesterday -Still low today, started 20 meq KCl daily (4) Dizziness and giddiness Current Visit: Yes Status: Acute Priority: Medium Code(s): R42 - DIZZINESS AND GIDDINESS SNOMED Code(s): 255882398 Comment: -No sign worsening sepsis, into septic shock -May be dizzy due to pain medications, hypokalemia Status and Disposition: inpatient
[2019-02-15] MEDS: Potassium Chlor TAB* 20 MEQ TAB.ER PO SCH (13:03)
[2019-02-15] MEDS: Senna TAB 8.6 mg* TAB PO SCH (22:35)
[2019-02-16] MEDS: HYDROmorphone INJ1* 1 MG/ML SYRINGE IV PRN ×4 (00:13→12:31)
[2019-02-16] MEDS: ZOSYN 3.375 GM Q12H per EXTENDED INFUSION IVPB SCH ×4 (00:17→08:50)
[2019-02-16] MEDS: PROCHLORPERAZINE INJ 5 MG/ML 2 ML VIAL IV PRN (05:17)
[2019-02-16] MEDS: Docusate CAP* 100 MG PO SCH (08:50)
[2019-02-16] MEDS ORDERED: Calcium Carbonate CHEW TAB* 500 MG (TUMS) PO PRN (09:01)
[2019-02-16] MEDS ORDERED: Potassium Chlor TAB* 10 MEQ TAB.ER PO SCH (10:00)
[2019-02-16] MEDS: Potassium Chlor TAB* 20 MEQ TAB.ER PO SCH (10:01)
--- NOTE | 2019-02-16 10:52 | PN ---
Progress Note - Progress Note Date of Service: 02/16/19 Note: Inpatient Peritoneal Dialysis Note: Performed by Dr. Deb Gonzalez, [facility] Nephrology 02/16/2019 33 yo WF ESRD 2/2 to PKD with strong Family History Admitted with PD Peritonitis, Pasteurella sensitive to Cefazolin Today feels better, pain is significantly better. Last night did PD with 1.5% & 2.5% and had UF 150 cc. She still makes decent UOP. PD fluid clearing up. Still has some Rt abdominal tenderness. She was started on KCl tablets for Hypokalemia, around noon yesterday, but at midnight last night felt bad esophageal reflux symptoms, possibly from KCl, although did break it in half and took only one half a tablet. PD prescription: Modality CCD (APD) Duration 9 Hr, from 10p to 7a. 5 exchanges. Fill volume 2 L. Total Volume 10L. 2.5 L of 1.5% & 2.5% Dextrose Today has no c/c, no SOB, no CP or edema Active Medications: Acetaminophen (Tylenol Tab*) 650 mg PO Q4H PRN PRN Reason: MILD PAIN or TEMP > 100.4 Calcium Carbonate (Tums*) 500 mg PO Q4H PRN PRN Reason: HEARTBURN Last Admin: 02/16/19 09:38 Dose: 500 mg Docusate Sodium (Colace Cap*) 100 mg PO BID [facility] Last Admin: 02/16/19 08:50 Dose: Not Given Hydromorphone HCl (Dilaudid Inj1s*) 1 mg IV Q3H PRN PRN Reason: PAIN - SEVERE Last Admin: 02/16/19 08:44 Dose: 1 mg Piperacillin Sod/Tazobactam (Sod 3.375 gm/ Sodium Chloride) 100 mls @ 25 mls/ hr IVPB Q12H [facility] Last Admin: 02/16/19 08:50 Dose: 25 mls/hr Mupirocin (Bactroban 2 % Oint*) 1 applic TOPICAL DAILY [facility] Last Admin: 02/15/19 08:25 Dose: 1 applic Oxycodone/Acetaminophen (Percocet 5/325 Tab*) 1 tab PO Q4H PRN PRN Reason: PAIN - MODERATE Last Admin: 02/15/19 00:23 Dose: 1 tab Pharmacy Consult (Zosyn Per Pharmacy*) 1 note FOLLOW UP .ZOSYN PER PHARMACY [facility] Potassium Chloride (Klor Con Er Tab*) 10 meq PO BID [facility] Last Admin: 02/16/19 09:38 Dose: 10 meq Prochlorperazine Edisylate (Compazine Inj*) 10 mg IV Q6H PRN PRN Reason: NAUSEA/VOMITING Last Admin: 02/16/19 05:17 Dose: 10 mg Senna (Senokot 8.6 Mg Tab*) 1 tab PO BEDTIME [facility] Last Admin: 02/15/19 22:35 Dose: 1 tab Objective: .Vital Signs: Temp Pulse Resp BP Pulse Ox 97.9 F 83 16 110/76 97 02/16/19 07:15 02/16/19 07:15 02/16/19 08:44 02/16/19 07:15 02/16/19 07:15 .Heart: Regular rate and rhythm No murmur or gallop LE Edema No Rub .Lungs: Clear to auscultation and percussion No wheezes or Crackles .Extremities: No LE edema .Abdomeds: No ascitis Rt LQ tenderness. No rebound Laboratory Reviewed Sodium 135 mmol/L (135-145) 02/15/19 04:42 Potassium 3.1 mmol/L (3.5-5.0) L 02/15/19 04:42 BUN 28 mg/dL (6-24) H 02/15/19 04:42 Creatinine 9.72 mg/dL (0.51-0.95) H 02/15/19 04:42 Calcium 8.0 mg/dL (8.6-10.3) L 02/15/19 04:42 Magnesium 2.0 mg/dL (1.9-2.7) 02/13/19 15:28 AST 10 U/L (13-39) L 02/13/19 15:28 ALT 6 U/L (7-52) L 02/13/19 15:28 Assessment and Plan: Patient on PD, adequate prescription. Same regimen for today. PD related Peritonitis., on IV Zosyn, will need total 14 days of gram negative coverage. I'll switch her to IP Antibiotics, Cefazolin, per sensitivity report, 1 gram with the long dwell daily for total 14 days. She'll be trained by PD nurse for self injecting ABx. I placed a Cefazolin prescription for her with [facility] for her t pickup upon discharge. With regard to Hypokalemia: May give Liquid KCl if couldn't tolerate tablets, or may crush the Tablets too. Nevertheless KCl tablets can cause esophagitis, so advise large glass of water after KCl. May use short trial PPIs for symptoms of reflux She was informed about lab/radiology results & prognosis. All questions were answered. She was made part of the treatment plan.
[2019-02-16] MEDS: Mupirocin 2% OINT* TUBE TOPICAL SCH (12:33)
[2019-02-16 15:01] VITALS: BP 123/78
--- NOTE | 2019-02-17 09:53 | DS ---
CC: Dr. Annita Quintanilla; Dr. Dian Gonzalez * DISCHARGE SUMMARY: DATE OF ADMISSION: 02/13/19 DATE OF DISCHARGE: 02/16/19 NEPHROLOGY: Dr. 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 SECONDARY DIAGNOSES: 1. End-stage renal disease, on peritoneal dialysis, autosomal dominant polycystic kidney disease. 2. Hypertension. 3. Anemia. 4. Renal disease. 5. Chronic pain. 6. Hypokalemia. MEDICATIONS ON DISCHARGE: 1. Oxycodone/acetaminophen 7.5/325 one tab p.o. t.i.d. p.r.n. for pain. 2. Calcitriol capsule 0.5 mcg p.o. daily. 3. Calcium carbonate 500 mg p.o. q.4 hours p.r.n. for heartburn. 4. Cefazolin 1 g intraperitoneal through PD catheter to dwell for 6 to 8 hours once a day. 5. Docusate 100 mg p.o. b.i.d. 6. Mupirocin topically to affected areas daily. 7. Klor-Con sprinkle 8 mEq p.o. b.i.d. CONSULTATIONS: Dr. Rachel Osorio of nephrology. PROCEDURES: None. HOSPITAL COURSE: A 33-year-old woman with end-stage renal disease presented to the emergency department with abdominal pain and cramping as well as fever of 100.1. The patient had an initial white blood count of 14.9 and a potassium of 3.0. Beta- hCG was 1.31. Peritoneal fluid was withdrawn from her PD catheter and this showed 1300 white cells, 21 red cells, 93% neutrophils, 1 band, 3 lymphocytes, 3 monocytes. Peritoneal dialysis fluid culture showed Pasteurella multocida, which was sensitive to cefazolin and meropenem. The patient was initially started empirically on IV Zosyn for treatment of sepsis given her fever, white count, and tachycardia at 113. We discussed the case with infectious disease and with nephrology, and the decision was made that she could go home with 2 weeks of intraperitoneal cefazolin. On the day of discharge, the cefazolin was not ready in the pharmacy, but she was able to take her dose of Zosyn, go home and do her overnight peritoneal dialysis, and then on the morning after discharge she will get cefazolin from the pharmacy and have training on infusing this with nurse May[facility] at [facility]. On the day of discharge, the patient was taking nourishment, ambulatory, and had much reduced abdominal pain. She had trouble tolerating potassium, so she was sent home with potassium sprinkles to add to her food or mix with water or juice. Discharge potassium was 3.1. DISPOSITION: Home. DIET: Renal. ACTIVITY: As tolerated. CONDITION: Stable. STATUS: Inpatient. FOLLOWUP: With primary care within [address] Gonzalez or Dr. Osorio in the Nephrology Clinic in the next week as well. TIME SPENT: I spent more than 45 minutes with the patient and arranging discharge. [id number]/[facility] #: [id number] [place]
== END 2019-02-16 16:00 | disposition home or self-care (01) | DRG 720 ==
LOC: ED 14:18 → MED 18:43
PROVIDERS: ADMIT Internal Medicine; ATTEND Internal Medicine
PROC: 3E1M39Z Irrigation of Peritoneal Cavity using Dialysate, Percutaneous Approach (ICD-10-PCS; principal; 2019-02-13)
DX: A41.9 Sepsis, unspecified organism (principal); K65.9 Peritonitis, unspecified; N18.6 End stage renal disease; T85.71XA Infection and inflammatory reaction due to peritoneal dialysis catheter, initial encounter; I12.0 Hypertensive chronic kidney disease with stage 5 chronic kidney disease or end stage renal disease; Q61.3 Polycystic kidney, unspecified; A28.0 Pasteurellosis; N39.0 Urinary tract infection, site not specified; E87.6 Hypokalemia; D64.9 Anemia, unspecified; G89.29 Other chronic pain; Z99.2 Dependence on renal dialysis; Z79.891 Long term (current) use of opiate analgesic; Z79.899 Other long term (current) drug therapy; Z88.6 Allergy status to analgesic agent; Z88.5 Allergy status to narcotic agent; Z88.8 Allergy status to other drugs, medicaments and biological substances; Z87.891 Personal history of nicotine dependence; Z84.1 Family history of disorders of kidney and ureter
CPT/HCPCS: 36415; 71045; 74176; 80048; 80053; 80202; 81003; 81015; 83605; 83735; 84702; 85025; 85060; 87040; 87070; 87077; 87086; 87186; 87205; 87641; 89051; 93005; 96361; 96365; 96375; 99284; A9270-GY; J0744; J0780; J1170; J1644; J2405; J2543; J3370